=== PATIENT | male | born 1940 | race Caucasian/White ===

== ENCOUNTER 2016-11-30 06:10 | Day surgery (SDC) | payer OTHER ==
[~2016-11-30] VITALS: Ht 177.8 cm; Wt 86.2 kg
[~2016-11-30 06:10] MED LIST: AMLO10TA4 PO; ASPEC81 PO; ATOR-54 PO; CEFAZOLIN 1000MG/55 ML D5W IV SCH; CEFAZOLIN IV 1,000 MG in DEXTROSE 5% 50ML IV SCH; CITA40TA4 PO; CMD5 PO; CRG125 PO; DIGO0.2518 PO; GLC/500 PO; GLC5 PO; HYDC25 PO; LACTATED RINGER'S 1000ML IV SCH; LOSA1TAB38 PO; WARF5TAB90 PO
[2016-11-30 07:04] VITALS: BP 166/76; PULSE 92; TEMP 36.5; O2SAT 94; Ht 177.8 cm; Wt 86.2 kg
[2016-11-30] MEDS ORDERED: FENTANYL CITRATE INJ 50 MCG/1 ML 2 ML VIAL ONE (07:19)
[2016-11-30] MEDS ORDERED: BACITRACIN 50000 UNIT VIAL ONE (07:20)
[2016-11-30] MEDS ORDERED: MIDAZOLAM HCL 5 MG/ML 1 ML VIAL ONE (07:20)
[2016-11-30] MEDS ORDERED: LIDOCAINE HCL 1% 20 ML VIAL ONE (07:20)
--- NOTE | 2016-11-30 08:10 | History & Physical Bridge Note ---
H&P Re-Evaluation Bridge Note: I have examined the patient, reviewed the History & Physical and in the interval since the performance of the History & Physical I have noted the following changes of clinical significance: No changes noted
--- NOTE | 2016-11-30 08:11 | Procedure Note ---
Pre-Mod Sedation Assessment General Date of Moderate Sedation: Nov 30, 2016. Vital Signs: Vital Signs Past 12 Hours Date Time Temp Pulse Resp B/P (MAP) Pulse Ox O2 Delivery O2 Flow Rate FiO2 11/30/16 07:04 36.5 92 20 166/76 (106) 94 Room Air Review Cardiovascular: regular rate, rhythm Abdomen: soft Lungs: lungs clear Airway Class: II Pre-Sedation Airway Assessment Oral Cavity: WNL Short Thick Neck: No Hx of Sleep Apnea: No Smoking Status: Current Every Day Smoker Mallampati Classification: Class II ASA Classification: Class II Procedure Planning Contraindications-for Mod Sed: None Yes Notes The planned sedation has been discussed with the patient and consent obtained. I have identified the patient, determined the appropriateness of sedation and have assessed the patient immediately prior to the procedure. All medicine(s) and interventions are by my order.
--- NOTE | 2016-11-30 09:21 | Procedure Note ---
Post-Mod Sedation Assessment General Date of Moderate Sedation Nov 30, 2016. OF NOTE PATIENT DID NOT GET ANY MODERATE SEDATION FOR PROCEDURE; ONLY LOCAL LIDOCAINE GIVEN Vital Signs: Vital Signs Past 12 Hours Date Time Temp Pulse Resp B/P (MAP) Pulse Ox O2 Delivery O2 Flow Rate FiO2 11/30/16 09:15 90 16 119/86 (97) 95 Room Air 11/30/16 07:04 36.5 92 20 166/76 (106) 94 Room Air Review - Discharge Criteria Vital Signs Stable: Yes Alert/Oriented/Conversant: Yes Returned to Baseline Mental St: Yes Nausea Absent/Minimal: Yes Pain/Discomfort/Absent/Minimal: Yes Normal/Baseline Respirations: Yes Active Bleeding?: No Pt Received D/C Instructions: N/A Prescriptions Given: None Specific Proced. D/C Criteria Distal Pulses Present (Cardiac: N/A Groin site assessed-Card Cath: N/A Voided Prior To Discharge: N/A Discharged Patients Adult Escort/Transportation: N/A
--- NOTE | 2016-11-30 09:23 | [facility] Post Operative Brief Note ---
Immediate Operative Summary Operative Date Nov 30, 2016. Pre-Operative Diagnosis TBS, PERMANENT AF, PPM AT [facility] Post-Operative Diagnosis SAME Procedure(s) Performed SINGLE CHAMBER RATE RESPONSIVE PERMANENT PACEMAKER GENERATOR CHANGE WITH CAPPING OF THE RA LEAD Surgeon TAMARA FERRARA Electric Train Driver Surgeon(s) NONE Estimated Blood Loss <5CC Findings SEE OFFICIAL REPORT Fluids (cc crystalloids) 100CC Specimens NONE Drains NONE Anesthesia LOCAL LIDOCAINE AND BUBIVICAINE ONLY 40CC TOTAL Complication(s) None Disposition MTU
--- NOTE | 2016-11-30 09:25 | Discharge Instructions ---
Discharge Instructions Date of Service Nov 30, 2016. Visit Reason for Visit: Sinus Node Dysfunction Discharge Discharge Diagnosis / Problem: PPM AT [facility], TBS, PERMAMENT AF Discharge Goals Goal(s): Improve function Activity Recommendations Activity Limitations: as noted below Lifting Limitations: no more than 10 pounds (WITH THE LEFT ARM FOR 2 WEEKS) May Resume Sexual Activity: after one week Shower/Bathe: tomorrow Driving or Machine Use: no limitations Anesthesia . Post Anesthesia Instructions: If you have had General Anesthesia or IV Sedation: * Do not drive today. * Resume driving when surgeon permits. * Do not make important decisions or sign legal documents today. * Call surgeon for: 1. Temperature elevations greater than 101 degrees F. 2. Uncontrollable pain. 3. Excessive bleeding. 4. Persistent nausea and vomiting. 5. Medication intolerance (nausea, vomiting or rash). * For nausea and vomiting use only clear liquids such as: tea, soda, bouillon until nausea subsides, then gradually increase diet as tolerated. * If you have any concerns or questions, call your surgeon's office. If physician is unavailable and it is an emergency, call 911 or go to the nearest emergency room. . Diet Recommendations Recommended Home Diet: resume previous diet Procedures Procedures Performed: SINGLE CHAMBER RATE RESPONSIVE PERMANENT PACEMAKER GENERATOR CHANGE WITH CAPPING OF THE RA LEAD Pending Studies Studies pending at discharge: no Medical Emergencies . Who to Call and When: Medical Emergencies: If at any time you feel your situation is an emergency, please call 911 immediately. . Non-Emergent Contact Non-Emergency issues call your: [facility] . . "Provider Documentation" section prepared by Cynthia Toscano. .
[2016-11-30 09:30] VITALS: BP 120/76; PULSE 93; TEMP 37.2; O2SAT 91
[2016-11-30 10:00] VITALS: BP 96/66; PULSE 90; TEMP 36.8; O2SAT 92
--- NOTE | 2016-11-30 10:46 | OPERATIVE REPORT ---
DATE OF OPERATION: 11/30/2016 PREOPERATIVE DIAGNOSES: Dual chamber permanent pacemaker at elective replacement indicator, permanent atrial fibrillation on Coumadin, Coreg and digoxin, tachybrady syndrome. POSTOPERATIVE DIAGNOSIS: Same. PROCEDURE: Single chamber rate responsive permanent pacemaker generator change, capping of the right atrial pacing lead due to permanent Afib. SURGEON: Cynthia Toscano M.D. FENCE ERECTOR SUPERVISOR: None. ANESTHESIA: Local anesthesia given. No moderate conscious sedation as patient was driving. The patient received 40 mL of 1% lidocaine, bupivacaine mixture. INTRAVENOUS FLUIDS: 100 mL. ANTIBIOTICS: Ancef 2 grams. BLOOD LOSS: Less than 5 mL. COMPLICATIONS: None. CONDITION: Stable. URINE OUTPUT: Not applicable. SPECIMENS: None. FINDINGS: See below. URINE OUTPUT: Not applicable. INDICATIONS: This 76-year-old gentleman with a past medical history of tachybrady syndrome in which he underwent a dual chamber permanent pacemaker back in 2004, permanent atrial fibrillation on Coumadin, Coreg and digoxin, hypertension, hyperlipidemia, mild mitral regurgitation and tricuspid regurgitation, chronic kidney disease stage III, coronary artery stenosis status post carotid endarterectomy in the past, diabetes. On his most recent generator check he was found to hit KARLI and was recommended a generator change due to permanent Afib capping his right atrial lead. CONSENT: Consent was obtained prior to the patient going into the electrophysiology lab. The patient was informed of risks, benefits and alternatives to the procedure. Risks include but not limited to sudden cardiac , cardiac arrhythmias, cerebrovascular accident, myocardial infarction, bleeding and infection. The patient understood these risks and agreed to undergo the procedure as planned. Informed consent was obtained. DESCRIPTION OF THE PROCEDURE: The patient was brought into the electrophysiology lab in a fasting state. He was connected to continuous quality assurance monitor. A timeout was performed to ensure patient's identity and procedure correctly. The patient was prepped and draped over the left infraclavicular space in normal surgical standard fashion. He received prophylactic antibiotics prior to incision. Local anesthesia was given throughout the procedure for patient's comfort level. There was no moderate conscious sedation given as the patient had to drive himself home. [place] precautions were maintained throughout the procedure. A 20 mL of 1% lidocaine, bupivacaine mixture were given over the pulse generator. Incision was made over the pulse generator. Blunt dissection was performed down to the prior pulse generator. The capsule was disrupted using iris scissors and the pulse generator was freed from the capsule. The right ventricular lead was tested intraoperatively, see below for results. The right atrial lead was capped due to permanent atrial fibrillation. A 10 mL of 1% lidocaine, bupivacaine mixture were given in the capsule and then using blunt dissection, the capsule was disrupted inferiorly and caudally to allow for new blood flow. The pocket was flushed with copious amounts of bacitracin saline wash and inspected for hemostasis. The new pulse generator was attached to the leads making sure that the pins were in appropriate position, passed the set screws and the set screws were all tightened. The new pulse generator was placed in the pocket, making sure that the lead was lying flat beneath the device and included the right atrial lead was lying flat beneath the device. An additional 10 mL of 1% lidocaine, bupivacaine mixture were given under the skin prior to closing. Indigo stat was given also since the patient is on Coumadin. The incision was closed in a 3-layer fashion using a 2-0 Vicryl interrupted suture followed by a 3-0 Vicryl interrupted suture followed by a 4-0 Monocryl running stitch. Dermabond was applied. EQUIPMENT: 1. Explanted generator is a [employer] model #1297, serial #[id number] implanted 05/21/2004. 2. New pulse generator was a [employer] Sensia SESR01, serial #[id number]. 3. Right atrial lead that is capped was a [employer]/Guidant 4063, serial #[id number] implanted 05/21/2004. 4. Right ventricular lead is [employer], model #4285, serial #[id number] implanted 05/21/2004. INTRAOPERATIVE TESTING: R-waves 21.8 millivolts, impedance 745 ohms, threshold 1.5 volts at 2.4 milliamps. FINAL MEASUREMENTS THROUGH THE DEVICE: Right R-wave 11.2 millivolts, impedance 779 ohms, threshold 1.25 volts at 0.4 milliseconds. FINAL PARAMETERS: VVIR 60/130. Right ventricular amplitude 3 volts, pulse width 0.4 milliseconds, sensitivity 2.8 millivolts. IMPRESSION: Successful single chamber rate responsive implantable permanent pacemaker generator change with capping of the right atrial lead due to tachybrady syndrome, pacemaker at [facility], permanent atrial fibrillation. PLAN: Monitor patient after the procedure, let him eat a little something then he can drive himself home since he did not get any conscious sedation. He is not allowed to lift more than 10 pounds with the left arm for 2 weeks. He should continue his home medications and follow up in our [facility] office for device and wound check in 7-10 days. I attest to the content of the Intraoperative Record and any orders documented therein. Any exceptions are noted below. AUTUMN
== END 2016-11-30 10:16 | disposition home or self-care (01) ==
LOC: C.ACU 06:10
PROVIDERS: ATTEND Internal Medicine
DX: I48.2 Chronic atrial fibrillation (principal); I49.5 Sick sinus syndrome; E11.9 Type 2 diabetes mellitus without complications; E78.5 Hyperlipidemia, unspecified; N18.3 Chronic kidney disease, stage 3 (moderate); I12.9 Hypertensive chronic kidney disease with stage 1 through stage 4 chronic kidney disease, or unspecified chronic kidney disease; F41.8 Other specified anxiety disorders; I65.23 Occlusion and stenosis of bilateral carotid arteries; Z95.0 Presence of cardiac pacemaker; Z79.01 Long term (current) use of anticoagulants; Z85.51 Personal history of malignant neoplasm of bladder; Z85.828 Personal history of other malignant neoplasm of skin; Z79.899 Other long term (current) drug therapy

== ENCOUNTER 2017-07-04 15:46 | Inpatient (IN) | payer OTHER ==
[~2017-07-04] VITALS: Ht 177.8 cm; Wt 83.7 kg
[~2017-07-04 15:46] MED LIST changes: -CEFAZOLIN 1000MG/55 ML D5W IV SCH; -CEFAZOLIN IV 1,000 MG in DEXTROSE 5% 50ML IV SCH; -LACTATED RINGER'S 1000ML IV SCH
[2017-07-04] MEDS ORDERED: SODIUM CHLORIDE 0.9% 250ML 250 ML IV STA (16:10)
[2017-07-04] MEDS ORDERED: METHYLPREDNISOLONE 125 MG VIAL IV STA (16:10)
[2017-07-04] MEDS ORDERED: ALBUT/IPRATROP 3MG/0.5MG NEB 3 ML VIAL INH ONE (16:15)
[2017-07-04] MEDS ORDERED: SODIUM CHLORIDE 0.65% NA SOLN 45 ML (OCEAN) ONE (16:15)
--- NOTE | 2017-07-04 16:26 | EMERGENCY ROOM VISIT NOTE ---
History Report prepared by Sylvia: Sherri Verde Under the Supervision of: Dr. Tevin Ricketts M.D. First contact with patient: 16:03 Chief Complaint: COUGH Stated Complaint: SOB History of Present Illness The patient is a 77 year old male who presents to the Emergency Room with complaints of persistent shortness that began one day ago. The patient states that he has been experiencing generalized weakness, a runny nose, a cough with clear sputum, and congestion. He denies any chills, fevers, nausea, vomiting, diarrhea, pain with urination, or changes in his vision or hearing. The patient reports that he is not normally on oxygen and does not have any inhalers at home. He notes that he smokes one pack of cigarettes a day, but he has not had any respiratory problems in the past. The patient states that he has a pacemaker in place for his atrial fibrillation, noting that he is on Coumadin and that Dr. Pruitt is his umbrella tipper. He notes that the nebulizer treatment he received prior to arrival helped relieve some of his symptoms. Source of History: patient Onset: one day ago Position: other (respiratory system) Quality: other (shortness of breath) Timing: other (persistent) Associated Symptoms: + cough (with clear sputum), + weakness (generalized), No fevers, No chills, No nausea, No vomiting, No diarrhea Note: Associated symptoms include: congestion and runny nose. Patient denies: pain with urination and changes in his vision or hearing. Review of Systems See HPI for pertinent positives and negatives. A total of ten systems were reviewed and were otherwise negative. Past Medical & Surgical Medical Problems: (1) A-fib (2) COPD exacerbation (3) Diabetes (4) Heart disease (5) HTN (hypertension) Family History Diabetes mellitus FH: heart disease Social History Smoking Status: Current Every Day Smoker Alcohol Use: none Drug Use: none Housing Status: lives alone Occupation Status: unemployed Current/Historical Medications Scheduled Amlodipine (Norvasc), 10 MG PO DAILY Aspirin (Aspirin Ec), 81 MG PO DAILY Atorvastatin (Lipitor), 20 MG PO DAILY Carvedilol (Coreg), 12.5 MG PO BID Citalopram (Citalopram Hydrobromide), 40 MG PO DAILY Digoxin (Digoxin), 0.125 MG PO DAILY Glipizide (Glucotrol), 20 MG PO BID Hydrochlorothiazide (Hctz), 25 MG PO 3XWK Losartan Potassium (Losartan Potassium), 25 MG PO DAILY Metformin Hcl (Glucophage), 500 MG PO BID Warfarin Sod (Coumadin), 5 MG PO SatSun Warfarin Sod (Jantoven), 2.5 MG PO MTWRF Allergies Coded Allergies: No Known Allergies (Verified , 07/04/17) Physical Exam Vital Signs Date Time Temp Pulse Resp B/P (MAP) Pulse Ox O2 Delivery O2 Flow Rate FiO2 07/04/17 19:43 92 Oxymask 6.0 07/04/17 19:24 102 22 122/77 90 Nasal Cannula 3.0 07/04/17 17:20 88 22 125/73 98 Nebulizer 7.0 07/04/17 16:38 86 07/04/17 16:33 87 20 93 Nasal Cannula 4.0 07/04/17 16:04 36.5 94 20 126/67 94 Nasal Cannula 4.0 07/04/17 16:03 93 Nasal Cannula 4.0 07/04/17 16:00 75 Room Air Physical Exam GENERAL: Awake, alert, dyspneic appearing, in no distress HENT: Dry mucous membranes. Normocephalic, atraumatic. Oropharynx unremarkable. EYES: Normal conjunctiva. Sclera non-icteric. NECK: Supple. No nuchal rigidity. FROM. No JVD. RESPIRATORY: Diminished breath sounds throughout with scant scattered wheezes. CARDIAC: Regular rate, normal rhythm. Extremities warm and well perfused. Pulses equal. ABDOMEN: Soft, non-distended. No tenderness to palpation. No rebound or guarding. No masses. RECTAL: Deferred. MUSCULOSKELETAL: Chest examination reveals no tenderness. The back is symmetrical on inspection without obvious abnormality. There is no CVA tenderness to palpation. No joint edema. LOWER EXTREMITIES: Calves are equal size bilaterally and non-tender. No edema. No discoloration. NEURO: Normal sensorium. No sensory or motor deficits noted. SKIN: No rash or jaundice noted. Medical Decision & Procedures ER Provider Diagnostic Interpretation: X-ray: Per my interpretation, radiologist review. CHEST ONE VIEW PORTABLE HISTORY: Atypical CHEST PAIN COMPARISON: Chest 11/15/2014. FINDINGS: No pneumothorax. The heart is mildly enlarged. Interstitial and vascular thickening is progressed. Hazy appearance to the lung bases may be due to small layering pleural effusions. Left-sided dual-chamber pacemaker. Severe degenerative changes within the right glenohumeral joint. IMPRESSION: Interval development of pulmonary edema with probable small bilateral pleural effusions. Electronically signed by: Corby Everett M.D. 07/04/2017 4:57 PM Dictated Date/Time: 07/04/2017 4:56 PM Laboratory Results 07/04/17 16:39 Red Blood Count 4.22, Mean Corpuscular Volume 92.4, Mean Corpuscular Hemoglobin 31.3, Mean Corpuscular Hemoglobin Concent 33.8, Mean Platelet Volume 9.8, Neutrophils (%) (Auto) 77.0, Lymphocytes (%) (Auto) 15.6, Monocytes (%) (Auto) 7.0, Eosinophils (%) (Auto) 0.0, Basophils (%) (Auto) 0.1, Neutrophils # (Auto) 5.64, Lymphocytes # (Auto) 1.14, Monocytes # (Auto) 0.51, Eosinophils # (Auto) 0.00, Basophils # (Auto) 0.01 07/04/17 16:39 Test 07/04/17 16:33 07/04/17 16:39 Influenza Type A (RT-PCR) Neg for Influ A (NEG) Influenza Type A Antigen Neg for Influ A (NEG) Influenza Type B Antigen Neg for Influ B (NEG) Influenza Type B (RT-PCR) Neg for Influ B (NEG) White Blood Count 7.32 K/uL (4.8-10.8) Red Blood Count 4.22 M/uL (4.7-6.1) Hemoglobin 13.2 g/dL (14.0-18.0) Hematocrit 39.0 % (42-52) Mean Corpuscular Volume 92.4 fL (80-100) Mean Corpuscular Hemoglobin 31.3 pg (25-34) Mean Corpuscular Hemoglobin Concent 33.8 g/dl (32-36) Platelet Count 145 K/uL (130-400) Mean Platelet Volume 9.8 fL (7.4-10.4) Neutrophils (%) (Auto) 77.0 % Lymphocytes (%) (Auto) 15.6 % Monocytes (%) (Auto) 7.0 % Eosinophils (%) (Auto) 0.0 % Basophils (%) (Auto) 0.1 % Neutrophils # (Auto) 5.64 K/uL (1.4-6.5) Lymphocytes # (Auto) 1.14 K/uL (1.2-3.4) Monocytes # (Auto) 0.51 K/uL (0.11-0.59) Eosinophils # (Auto) 0.00 K/uL (0-0.5) Basophils # (Auto) 0.01 K/uL (0-0.2) RDW Standard Deviation 48.5 fL (36.4-46.3) RDW Coefficient of Variation 14.4 % (11.5-14.5) Immature Granulocyte % (Auto) 0.3 % Immature Granulocyte # (Auto) 0.02 K/uL (0.00-0.02) Prothrombin Time 29.4 SECONDS (9.0-12.0) Prothromb Time International Ratio 2.9 (0.9-1.1) Venous Blood pH 7.38 (7.36-7.41) Venous Blood Partial Pressure CO2 52 mmHg (38.0-50.0) Venous Blood Partial Pressure O2 28 mmHg Venous Blood HCO3 30 mmol/L Venous Blood Oxygen Saturation < 60.0 % Venous Blood Base Excess 3.7 mEq/L Anion Gap 6.0 mmol/L (3-11) Est Creatinine Clear Calc Drug Dose 76.6 ml/min Estimated GFR () 98.3 Estimated GFR (Non- 84.8 BUN/Creatinine Ratio 25.4 (10-20) Calcium Level 8.4 mg/dl (8.5-10.1) Total Bilirubin 1.2 mg/dl (0.2-1) Direct Bilirubin 0.3 mg/dl (0-0.2) Aspartate Amino Transf (AST/SGOT) 37 U/L (15-37) Alanine Aminotransferase (ALT/SGPT) 33 U/L (12-78) Alkaline Phosphatase 94 U/L (45-117) Pro-B-Type Natriuretic Peptide 2522 pg/ml (0-900) Total Protein 7.5 gm/dl (6.4-8.2) Albumin 3.0 gm/dl (3.4-5.0) Lipase 51 U/L (73-393) Digoxin Level 0.4 ng/ml (0.8-2.0) Laboratory results reviewed by me Medications Administered Medications (Trade) Dose Ordered Sig/Lynette Route Start Time Stop Time Status Last Admin Dose Admin Albuterol/ Ipratropium (Duoneb) 12 ml ONE ONCE INH 07/04/17 16:15 07/04/17 16:16 DC 07/04/17 16:32 12 ML Sodium Chloride 250 ml @ 999 mls/hr Q16M STAT IV 07/04/17 16:10 07/04/17 16:25 DC 07/04/17 16:37 999 MLS/HR Methylprednisolone Sodium Succinate (Solu-Medrol IV) 125 mg NOW STAT IV 07/04/17 16:10 07/04/17 16:14 DC 07/04/17 16:37 125 MG Sodium Chloride ([place] Nasal [place]) 2 sprays NOW ONCE NA 07/04/17 16:15 07/04/17 16:16 DC 07/04/17 16:37 2 SPRAYS Aspirin (Aspirin Chew) 162 mg NOW STAT PO 07/04/17 18:12 07/04/17 18:14 DC 07/04/17 18:39 162 MG Azithromycin (Zithromax Tab) 500 mg NOW ONCE PO 07/04/17 18:15 07/04/17 18:16 DC 07/04/17 18:40 500 MG ECG Per My Interpretation Indication: SOB/dyspnea Rate (beats per minute): 83 Rhythm: atrial fibrillation Findings: nonspecific-ST abn (laterally, similar to prior), no acute ischemic change, other (normal axis) Comparison ECG Date: Non-specific ST changes laterally similar to prior: ED Course 1604: The patient was evaluated in room B8. A complete history and physical exam was performed. 180: I reevaluated the patient, who was resting. I discussed some test findings with him and he verbalized complete understanding. 1852: Discussed the patient's case with Luis Alcaraz. He will evaluate the patient for further treatment. 2019: I reevaluated the patient and updated him on test findings. He verbalized agreement of the treatment plan. Medical Decision I reviewed the patient's past medical history, medications, and the nursing notes as described above. Differential diagnosis: Etiologies such as infections, reactive airway disease, pneumonia, pneumothorax , COPD, CHF, cardiac ischemia, pulmonary embolism, musculoskeletal, gastrointestinal, as well as others were entertained. The patient is a 77-year-old gentleman with a past medical history of sinus node dysfunction status post permanent pacemaker, A. fib on Coumadin, diabetes, CKD presents emergency department with cough congestion for the past 2 days found to be hypoxic at 88% on room air per EMS per hpi. On arrival the patient is dyspneic but no acute distress, afebrile, with O2 saturation 78% on room air , vital signs otherwise stable. On exam the patient has diminished breath sounds throughout with scant scattered wheezes. Patient appears clinically dry. EKG with minor lateral STD laterally similar in precordial morphology to prior EKG in 2014. Initial trop 1.2 in the setting of patient's hypercapnea and hypoxia, likely ongoing for past couple of days. Will continue to trend Trop for now. INR 2.9. CO2 50s. WBC wnl. CXR with pulmonary edema however BNP 2500s. Given patient appears dry to Euvolemic Lasix deferred at this time. Patient feeling improved with steroids and duoneb. Azithro given 2/2 sputum production. Will admit for COPD exacerbation with CHF component. Case d/w Luis Ordoñez hospitalist who will admit the patient for further management. Medication Reconcilliation Current Medication List: was personally reviewed by me Blood Pressure Screening Patient's blood pressure: Normal blood pressure Blood pressure disposition: Did not require urgent referral Consults Time Called: 1852 Consulting Physician: Luis Alcaraz Returned Call: 1852 Discussed the patient's case with Luis Ordoñez. He will evaluate the patient for further treatment. Impression Primary Impression: COPD exacerbation Additional Impression: Pulmonary edema Scribe Attestation The scribe's documentation has been prepared under my direction and personally reviewed by me in its entirety. I confirm that the note above accurately reflects all work, treatment, procedures, and medical decision making performed by me. Departure Information Dispostion Being Evaluated By Hospitalist Referrals David Charles M.D. (PCP) Forms HOME CARE DOCUMENTATION FORM, IMPORTANT VISIT INFORMATION Patient Instructions My [facility] Health Problem Qualifiers
[2017-07-04 16:33] VITALS: PULSE 87; O2SAT 93
[2017-07-04 16:49] LABS: BASO % 0.1 %; BASO ABS # 0.01 K/uL (0-0.2); HEMOGLOBIN 13.2 g/dL (14.0-18.0); IG# 0.02 K/uL (0.00-0.02); LYMPH % 15.6 %; LYMPH ABS # 1.14 K/uL (1.2-3.4); MEAN CELL VOLUME 92.4 fL (80-100); MEAN CORPUSCULAR HEMOGLOBIN 31.3 pg (25-34); MEAN CORPUSCULAR HGB CONC 33.8 g/dl (32-36); MEAN PLATELET VOLUME 9.8 fL (7.4-10.4); MONO ABS # 0.51 K/uL (0.11-0.59); NEUT ABS # 5.64 K/uL (1.4-6.5); PLATELET COUNT 145 K/uL (130-400); RED CELL DISTRIBUTION WIDTH CV 14.4 % (11.5-14.5); RED CELL DISTRIBUTION WIDTH SD 48.5 fL (36.4-46.3); WHITE BLOOD COUNT 7.32 K/uL (4.8-10.8)
[2017-07-04 16:57] LABS: INR 2.9 (0.9-1.1)
--- NOTE | 2017-07-04 16:58 | DIAGNOSTIC IMAGING REPORT ---
CHEST ONE VIEW PORTABLE HISTORY: Atypical CHEST PAIN COMPARISON: Chest 11/15/2014. FINDINGS: No pneumothorax. The heart is mildly enlarged. Interstitial and vascular thickening is progressed. Hazy appearance to the lung bases may be due to small layering pleural effusions. Left-sided dual-chamber pacemaker. Severe degenerative changes within the right glenohumeral joint. IMPRESSION: Interval development of pulmonary edema with probable small bilateral pleural effusions. Electronically signed by: Corby Everett M.D. 07/04/2017 4:57 PM Dictated Date/Time: 07/04/2017 4:56 PM
[2017-07-04] MEDS ORDERED: HYDR25TA4 PO (17:11)
[2017-07-04] MEDS ORDERED: AMLO-114 PO (17:11)
[2017-07-04] MEDS ORDERED: CZR50 PO (17:11)
[2017-07-04] MEDS ORDERED: CLX/40 PO (17:11)
[2017-07-04] MEDS ORDERED: ASPI81TA28 PO (17:11)
[2017-07-04] MEDS ORDERED: GLIP10TA3 PO (17:11)
[2017-07-04] MEDS ORDERED: WARF5TAB7 PO (17:11)
[2017-07-04] MEDS ORDERED: CARV12.52 PO (17:11)
[2017-07-04] MEDS ORDERED: LNX125 PO (17:11)
[2017-07-04] MEDS ORDERED: CMD5 PO (17:11)
[2017-07-04] MEDS ORDERED: ATOR-22 PO (17:11)
[2017-07-04] MEDS ORDERED: GLC/500 PO (17:11)
[2017-07-04 17:23] LABS: INFLUENZA B ANTIGEN Neg for Influ B (NEG)
[2017-07-04 17:34] LABS: CALCIUM 8.4 mg/dl (8.5-10.1); CREATININE 0.86 mg/dl (0.60-1.40); POTASSIUM 3.9 mmol/L (3.5-5.1)
[2017-07-04 17:45] LABS: TOTAL PROTEIN 7.5 gm/dl (6.4-8.2)
[2017-07-04] MEDS ORDERED: ASPIRIN 81 MG CHEW PO STA (18:12)
[2017-07-04] MEDS ORDERED: AZITHROMYCIN 250 MG TAB PO ONE (18:15)
[2017-07-04] MEDS ORDERED: POLYETHYLENE (MIRALAX) 17 GM PACK PO PRN (20:45)
[2017-07-04] MEDS ORDERED: ONDANSETRON INJ 2 MG/ML 2 ML VIAL IV PRN (20:45)
[2017-07-04] MEDS ORDERED: DEXTROSE 50% 50 ML SYR IV PRN (20:45)
[2017-07-04] MEDS ORDERED: GLUCOSE 10 TABS/TUBE PO PRN (20:45)
[2017-07-04] MEDS ORDERED: ACETAMINOPHEN 325 MG TAB PO PRN (20:45)
[2017-07-04] MEDS ORDERED: GLUCAGON FOR INJ 1 MG VIAL SQ PRN (20:45)
[2017-07-04] MEDS ORDERED: GLUCOSE 40% GEL 15 GM TUBE PO PRN (20:45)
--- NOTE | 2017-07-04 21:29 | History and Physical ---
History & Physical Date & Time of Service: Jul 04, 2017 at 21:16 Chief Complaint: SOB Primary Care Physician: Shwetha Avina History of Present Illness Source: patient, clinic records, hospital records The patient is a 77-year-old male smoker who presents to the emergency room with shortness of breath that began 24 hours before arrival. He reports generalized weakness, runny nose, a cough with clear sputum which is new for him. He denies any fevers, chills, nausea, vomiting, diarrhea, pain with urination or other UTI symptoms. He denies chest pain or palpitations. He has a known history of A. fib on Coumadin and is therapeutic. He received a nebulizer treatment prior to arrival and in the ER with some improvement. He denies any recent sick contacts except for 2 people that he briefly interacted with in his apartment building. He denies any travel. He is not on oxygen typically. He reports feeling last night that he could not get enough air. The patient lives alone. Past Medical/Surgical History Medical Problems: (1) A-fib Status: Chronic (2) Bilateral carotid artery stenosis Status: Chronic (3) Diabetes Status: Chronic (4) Heart disease Status: Chronic (5) HTN (hypertension) Status: Chronic (6) Pacemaker Status: Chronic Family History Diabetes mellitus FH: heart disease Social History Smoking Status: Current Every Day Smoker (1 pack per day) Smokeless Tobacco Use: No Alcohol Use: none Drug Use: none Marital Status: single Housing status: lives alone Occupational Status: unemployed Immunizations History of Influenza Vaccine: Yes Influenza Vaccine Date: May 01, 2009 History of Tetanus Vaccine?: No History of Pneumococcal: No History of Hepatitis B Vaccine: No Allergies Coded Allergies: No Known Allergies (Verified , 07/04/17) Home Medications Scheduled Amlodipine (Norvasc), 10 MG PO DAILY Aspirin (Aspirin Ec), 81 MG PO DAILY Atorvastatin (Lipitor), 20 MG PO DAILY Carvedilol (Coreg), 12.5 MG PO BID Citalopram (Citalopram Hydrobromide), 40 MG PO DAILY Digoxin (Digoxin), 0.125 MG PO DAILY Glipizide (Glucotrol), 20 MG PO BID Hydrochlorothiazide (Hctz), 25 MG PO [id number] Losartan Potassium (Losartan Potassium), 25 MG PO DAILY Metformin Hcl (Glucophage), 500 MG PO BID Warfarin Sod (Coumadin), 5 MG PO SatSun Warfarin Sod (Jantoven), 2.5 MG PO [id number] Review of Systems At least 10 systems were reviewed and negative except as indicated in HPI. Physical Exam Vital Signs Date Time Temp Pulse Resp B/P (MAP) Pulse Ox O2 Delivery O2 Flow Rate FiO2 07/04/17 21:02 102 22 122/77 92 07/04/17 19:43 92 Oxymask 6.0 07/04/17 19:24 102 22 122/77 90 Nasal Cannula 3.0 07/04/17 17:20 88 22 125/73 98 Nebulizer 7.0 07/04/17 16:38 86 07/04/17 16:33 87 20 93 Nasal Cannula 4.0 07/04/17 16:04 36.5 94 20 126/67 94 Nasal Cannula 4.0 07/04/17 16:03 93 Nasal Cannula 4.0 07/04/17 16:00 75 Room Air General Appearance: WD/WN, + mild distress (Mild respiratory distress.) Head: normocephalic, atraumatic Eyes: normal inspection, PERRL, sclerae normal ENT: normal ENT inspection, pharynx normal, + pertinent finding (Mucous membranes moist) Neck: supple, no adenopathy, no JVD, trachea midline Respiratory/Chest: + rhonchi, + wheezing, + pertinent finding (Mild respiratory distress, pacemaker in place left anterior chest) Cardiovascular: regular rate, rhythm, no edema, no gallop, no JVD, no murmur, normal peripheral pulses Abdomen/GI: normal bowel sounds, non tender, soft, no organomegaly Extremities/Musculoskelatal: normal inspection, no calf tenderness, no pedal edema, normal range of motion 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, no motor/sensory deficits, alert, normal mood/affect, oriented x 3 Skin: normal color, warm/dry, no rash Diagnostics Laboratory Results 07/04/17 16:39 Red Blood Count 4.22, Mean Corpuscular Volume 92.4, Mean Corpuscular Hemoglobin 31.3, Mean Corpuscular Hemoglobin Concent 33.8, Mean Platelet Volume 9.8, Neutrophils (%) (Auto) 77.0, Lymphocytes (%) (Auto) 15.6, Monocytes (%) (Auto) 7.0, Eosinophils (%) (Auto) 0.0, Basophils (%) (Auto) 0.1, Neutrophils # (Auto) 5.64, Lymphocytes # (Auto) 1.14, Monocytes # (Auto) 0.51, Eosinophils # (Auto) 0.00, Basophils # (Auto) 0.01 07/04/17 16:39 Test 07/04/17 16:33 07/04/17 16:39 Influenza Type A Antigen Neg for Influ A (NEG) Influenza Type B Antigen Neg for Influ B (NEG) White Blood Count 7.32 K/uL (4.8-10.8) Red Blood Count 4.22 M/uL (4.7-6.1) Hemoglobin 13.2 g/dL (14.0-18.0) Hematocrit 39.0 % (42-52) Mean Corpuscular Volume 92.4 fL (80-100) Mean Corpuscular Hemoglobin 31.3 pg (25-34) Mean Corpuscular Hemoglobin Concent 33.8 g/dl (32-36) Platelet Count 145 K/uL (130-400) Mean Platelet Volume 9.8 fL (7.4-10.4) Neutrophils (%) (Auto) 77.0 % Lymphocytes (%) (Auto) 15.6 % Monocytes (%) (Auto) 7.0 % Eosinophils (%) (Auto) 0.0 % Basophils (%) (Auto) 0.1 % Neutrophils # (Auto) 5.64 K/uL (1.4-6.5) Lymphocytes # (Auto) 1.14 K/uL (1.2-3.4) Monocytes # (Auto) 0.51 K/uL (0.11-0.59) Eosinophils # (Auto) 0.00 K/uL (0-0.5) Basophils # (Auto) 0.01 K/uL (0-0.2) RDW Standard Deviation 48.5 fL (36.4-46.3) RDW Coefficient of Variation 14.4 % (11.5-14.5) Immature Granulocyte % (Auto) 0.3 % Immature Granulocyte # (Auto) 0.02 K/uL (0.00-0.02) Prothrombin Time 29.4 SECONDS (9.0-12.0) Prothromb Time International Ratio 2.9 (0.9-1.1) Venous Blood pH 7.38 (7.36-7.41) Venous Blood Partial Pressure CO2 52 mmHg (38.0-50.0) Venous Blood Partial Pressure O2 28 mmHg Venous Blood HCO3 30 mmol/L Venous Blood Oxygen Saturation < 60.0 % Venous Blood Base Excess 3.7 mEq/L Anion Gap 6.0 mmol/L (3-11) Est Creatinine Clear Calc Drug Dose 76.6 ml/min Estimated GFR () 98.3 Estimated GFR (Non- 84.8 BUN/Creatinine Ratio 25.4 (10-20) Calcium Level 8.4 mg/dl (8.5-10.1) Total Bilirubin 1.2 mg/dl (0.2-1) Direct Bilirubin 0.3 mg/dl (0-0.2) Aspartate Amino Transf (AST/SGOT) 37 U/L (15-37) Alanine Aminotransferase (ALT/SGPT) 33 U/L (12-78) Alkaline Phosphatase 94 U/L (45-117) Troponin I 1.230 ng/ml (0-0.045) Pro-B-Type Natriuretic Peptide 2522 pg/ml (0-900) Total Protein 7.5 gm/dl (6.4-8.2) Albumin 3.0 gm/dl (3.4-5.0) Lipase 51 U/L (73-393) Digoxin Level 0.4 ng/ml (0.8-2.0) Results Past 24 Hours Test 07/04/17 16:33 07/04/17 16:39 Range/Units Influenza Type A Antigen Neg for Influ A NEG Influenza Type B Antigen Neg for Influ B NEG White Blood Count 7.32 4.8-10.8 K/uL Red Blood Count 4.22 4.7-6.1 M/uL Hemoglobin 13.2 14.0-18.0 g/dL Hematocrit 39.0 42-52 % Mean Corpuscular Volume 92.4 80-100 fL Mean Corpuscular Hemoglobin 31.3 25-34 pg Mean Corpuscular Hemoglobin Concent 33.8 32-36 g/dl Platelet Count 145 130-400 K/uL Mean Platelet Volume 9.8 7.4-10.4 fL Neutrophils (%) (Auto) 77.0 % Lymphocytes (%) (Auto) 15.6 % Monocytes (%) (Auto) 7.0 % Eosinophils (%) (Auto) 0.0 % Basophils (%) (Auto) 0.1 % Neutrophils # (Auto) 5.64 1.4-6.5 K/uL Lymphocytes # (Auto) 1.14 1.2-3.4 K/uL Monocytes # (Auto) 0.51 0.11-0.59 K/uL Eosinophils # (Auto) 0.00 0-0.5 K/uL Basophils # (Auto) 0.01 0-0.2 K/uL RDW Standard Deviation 48.5 36.4-46.3 fL RDW Coefficient of Variation 14.4 11.5-14.5 % Immature Granulocyte % (Auto) 0.3 % Immature Granulocyte # (Auto) 0.02 0.00-0.02 K/uL Prothrombin Time 29.4 9.0-12.0 SECONDS Prothromb Time International Ratio 2.9 0.9-1.1 Venous Blood pH 7.38 7.36-7.41 Venous Blood Partial Pressure CO2 52 38.0-50.0 mmHg Venous Blood Partial Pressure O2 28 mmHg Venous Blood HCO3 30 mmol/L Venous Blood Oxygen Saturation < 60.0 % Venous Blood Base Excess 3.7 mEq/L Sodium Level 134 136-145 mmol/L Potassium Level 3.9 3.5-5.1 mmol/L Chloride Level 100 98-107 mmol/L Carbon Dioxide Level 28 21-32 mmol/L Anion Gap 6.0 3-11 mmol/L Blood Urea Nitrogen 22 7-18 mg/dl Creatinine 0.86 0.60-1.40 mg/dl Est Creatinine Clear Calc Drug Dose 76.6 ml/min Estimated GFR () 98.3 Estimated GFR (Non- 84.8 BUN/Creatinine Ratio 25.4 10-20 Random Glucose 105 70-99 mg/dl Calcium Level 8.4 8.5-10.1 mg/dl Total Bilirubin 1.2 0.2-1 mg/dl Direct Bilirubin 0.3 0-0.2 mg/dl Aspartate Amino Transf (AST/SGOT) 37 15-37 U/L Alanine Aminotransferase (ALT/SGPT) 33 12-78 U/L Alkaline Phosphatase 94 45-117 U/L Troponin I 1.230 0-0.045 ng/ml Pro-B-Type Natriuretic Peptide 2522 0-900 pg/ml Total Protein 7.5 6.4-8.2 gm/dl Albumin 3.0 3.4-5.0 gm/dl Lipase 51 73-393 U/L Digoxin Level 0.4 0.8-2.0 ng/ml Diagnostic Radiology CHEST ONE VIEW PORTABLE HISTORY: Atypical CHEST PAIN COMPARISON: Chest 11/15/2014. FINDINGS: No pneumothorax. The heart is mildly enlarged. Interstitial and vascular thickening is progressed. Hazy appearance to the lung bases may be due to small layering pleural effusions. Left-sided dual-chamber pacemaker. Severe degenerative changes within the right glenohumeral joint. IMPRESSION: Interval development of pulmonary edema with probable small bilateral pleural effusions. EKG afib 83, no ST changes. poss q waves in V1-V3 Impression Assessment and Plan 77-year-old male smoker presents with persistent shortness of breath 1 day. 1. Hypoxia-possibly multifactorial etiology including COPD exacerbation with wheezing on exam as possible diastolic heart failure exacerbation. Wheezing, history of smoking and improvement on nebs therapy points more towards COPD exacerbation as the cause of his hypoxia. However the patient does have nonobstructive coronary disease and known aortic sclerosis on prior echo in 2009 in addition to pleural effusions and pulmonary congestion on chest x-ray tonight. He is Lasix neda and on HCTZ 3 times a week for diuretics. He has no edema or JVD. Will give Lasix 20 IV and monitor response in addition to continuing bronchodilator therapy, Solu-Medrol 40 mg IV every 6, Levaquin 750 IV daily. Continue supplemental oxygen. Flu PCR pending. 2. Elevated troponin-patient denies chest pain, however risk factors include diabetes hypertension older age, and active smoking. Patient has nonobstructive coronary disease per prior cardiology note last fall. Aspirin and statin continued. Patient is anticoagulated on warfarin. Echo ordered for morning. Monitor on telemetry. Cardiology consult. 3. Chronic atrial fibrillation-rate controlled with Coreg, on digoxin. Anticoagulated on Coumadin 4. Diabetes mellitus type 2-hold metformin and glipizide. Insulin sliding scale with carb coverage and Lantus while on steroids and hospitalized for close control. A1c in a.m. 5. Bilateral carotid artery stenosis 6. CKD stage III-at baseline 7. History of bladder cancer-no urinary issues at this time DVT prophylaxis-warfarin Full code as discussed with patient on admission Disposition-telemetry DO Luis Jacobo hospitalist Resuscitation Status VTE Prophylaxis Will order VTE Prophylaxis: Yes
[2017-07-04 21:37] VITALS: BP 142/87; PULSE 92; TEMP 36.7; O2SAT 93; Ht 177.8 cm; Wt 83.7 kg
[2017-07-04] MEDS ORDERED: FUROSEMIDE INJ 20 MG in SYRINGE 0 ML IV ONE (21:45)
[2017-07-04] MEDS: METHYLPREDNISOLONE IV 40 MG in SYRINGE 0 ML IV SCH (22:38)
[2017-07-04] MEDS: LEVOFLOXACIN / D5W 750 MG in PREMIXED IN D5W 150 ML IV SCH (22:38)
[2017-07-04 22:43] LABS: INFLUENZA A PCR Neg for Influ A (NEG); INFLUENZA B PCR Neg for Influ B (NEG)
[2017-07-04] MEDS: INSULIN ASPART 100 UNITS/ML 3 ML PEN SC SCH (22:52)
[2017-07-04] MEDS: INSULIN GLARGINE SOLOSTAR 100 UNITS/ML 3 ML PEN SC SCH (22:53)
[2017-07-04 23:41] VITALS: BP 93/65; PULSE 97; TEMP 36.8; O2SAT 96
[2017-07-05] VITALS (9 sets, daily range): BP systolic 107–160; BP diastolic 58–77; PULSE 74–88; TEMP 36.5–37.1; O2SAT 91–96
[2017-07-05] MEDS ORDERED: PNEUMOCOCCAL ADMINISTRATION CHARGE ONE (04:00)
[2017-07-05] MEDS ORDERED: PNEUMOCOCCAL POLYSACCHARIDES 25 MCG/0.5 ML VIAL/SYR IM. ONE (04:00)
[2017-07-05 04:23] LABS: HEMATOCRIT 42.4 % (42-52); HEMOGLOBIN 14.3 g/dL (14.0-18.0); MEAN CELL VOLUME 91.6 fL (80-100); MEAN CORPUSCULAR HEMOGLOBIN 30.9 pg (25-34); MEAN CORPUSCULAR HGB CONC 33.7 g/dl (32-36); PLATELET COUNT 170 K/uL (130-400); RED CELL DISTRIBUTION WIDTH CV 14.2 % (11.5-14.5); RED CELL DISTRIBUTION WIDTH SD 47.9 fL (36.4-46.3); WHITE BLOOD COUNT 4.53 K/uL (4.8-10.8)
[2017-07-05 04:38] LABS: INR 2.9 (0.9-1.1)
[2017-07-05 04:43] LABS: CALCIUM 8.7 mg/dl (8.5-10.1); CREATININE 1.07 mg/dl (0.60-1.40); POTASSIUM 3.7 mmol/L (3.5-5.1)
[2017-07-05] MEDS: METHYLPREDNISOLONE IV 40 MG in SYRINGE 0 ML IV SCH ×4 (05:02→22:54)
[2017-07-05 06:03] LABS: HEMOGLOBIN A1C 5.7 % (4.5-5.6)
[2017-07-05] MEDS: ALBUT/IPRATROP 3MG/0.5MG NEB 3 ML VIAL INH SCH ×4 (07:17→19:30)
[2017-07-05] MEDS: ATORVASTATIN 20 MG TAB PO SCH (08:31)
[2017-07-05] MEDS: LOSARTAN POTASSIUM 25 MG TAB PO SCH (08:31)
[2017-07-05] MEDS: CARVEDILOL 12.5 MG TAB PO SCH ×2 (08:31→19:48)
[2017-07-05] MEDS: AMLODIPINE BESYLATE 5 MG TAB PO SCH (08:31)
[2017-07-05] MEDS: ASPIRIN 81 MG ECTAB PO SCH (08:32)
[2017-07-05] MEDS: CITALOPRAM 40 MG TAB PO SCH (08:32)
[2017-07-05] MEDS: INSULIN ASPART 100 UNITS/ML 3 ML PEN SC SCH ×4 (08:34→20:49)
[2017-07-05] MEDS: INSULIN GLARGINE SOLOSTAR 100 UNITS/ML 3 ML PEN SC SCH ×2 (08:36→20:50)
--- NOTE | 2017-07-05 10:03 | Progress Note ---
Medicine Progress Note Date & Time of Visit: Jul 05, 2017 at 09:34. Subjective Pt was seen and examined Sitting at the edge of the bed with no distress Pt said that he continue to cough out some phlegm He said that his breathing seems to improve He denies any chest pain, palpitation, dizziness and SOB Objective Last 8 Hrs Date Time Temp Pulse Resp B/P (MAP) Pulse Ox O2 Delivery O2 Flow Rate FiO2 07/05/17 07:50 37.1 87 18 160/77 (104) 92 Nasal Cannula 2.0 07/05/17 07:20 86 20 93 Nasal Cannula 3.0 07/05/17 04:06 36.9 88 22 118/65 (82) 92 Nasal Cannula 4.0 07/05/17 04:00 Nasal Cannula 4.0 Physical Exam: General- No acute distress Head- atraumatic Eyes- PERRL, EOMI ENT- oropharynx clear Neck- supple, no JVD Lungs- mild wheezing, no crackle Heart- regular rhythm Abdomen- normal bowel sounds, soft Extremities- no calf tenderness Neuro- alert, oriented x 3; PERRL, EOMI; no facial palsy Skin- warm & dry Laboratory Results: Last 24 Hours Test 07/04/17 16:33 07/04/17 16:39 07/04/17 22:30 07/04/17 22:35 Influenza Type A (RT-PCR) Neg for Influ A Influenza Type A Antigen Neg for Influ A Influenza Type B Antigen Neg for Influ B Influenza Type B (RT-PCR) Neg for Influ B White Blood Count 7.32 K/uL Red Blood Count 4.22 M/uL Hemoglobin 13.2 g/dL Hematocrit 39.0 % Mean Corpuscular Volume 92.4 fL Mean Corpuscular Hemoglobin 31.3 pg Mean Corpuscular Hemoglobin Concent 33.8 g/dl Platelet Count 145 K/uL Mean Platelet Volume 9.8 fL Neutrophils (%) (Auto) 77.0 % Lymphocytes (%) (Auto) 15.6 % Monocytes (%) (Auto) 7.0 % Eosinophils (%) (Auto) 0.0 % Basophils (%) (Auto) 0.1 % Neutrophils # (Auto) 5.64 K/uL Lymphocytes # (Auto) 1.14 K/uL Monocytes # (Auto) 0.51 K/uL Eosinophils # (Auto) 0.00 K/uL Basophils # (Auto) 0.01 K/uL RDW Standard Deviation 48.5 fL RDW Coefficient of Variation 14.4 % Immature Granulocyte % (Auto) 0.3 % Immature Granulocyte # (Auto) 0.02 K/uL Prothrombin Time 29.4 SECONDS Prothromb Time International Ratio 2.9 Venous Blood pH 7.38 Venous Blood Partial Pressure CO2 52 mmHg Venous Blood Partial Pressure O2 28 mmHg Venous Blood HCO3 30 mmol/L Venous Blood Oxygen Saturation < 60.0 % Venous Blood Base Excess 3.7 mEq/L Sodium Level 134 mmol/L Potassium Level 3.9 mmol/L Chloride Level 100 mmol/L Carbon Dioxide Level 28 mmol/L Anion Gap 6.0 mmol/L Blood Urea Nitrogen 22 mg/dl Creatinine 0.86 mg/dl Est Creatinine Clear Calc Drug Dose 76.6 ml/min Estimated GFR () 98.3 Estimated GFR (Non- 84.8 BUN/Creatinine Ratio 25.4 Random Glucose 105 mg/dl Calcium Level 8.4 mg/dl Total Bilirubin 1.2 mg/dl Direct Bilirubin 0.3 mg/dl Aspartate Amino Transf (AST/SGOT) 37 U/L Alanine Aminotransferase (ALT/SGPT) 33 U/L Alkaline Phosphatase 94 U/L Troponin I 1.230 ng/ml 1.430 ng/ml Pro-B-Type Natriuretic Peptide 2522 pg/ml Total Protein 7.5 gm/dl Albumin 3.0 gm/dl Lipase 51 U/L Digoxin Level 0.4 ng/ml Bedside Glucose 141 mg/dl Test 07/05/17 04:02 07/05/17 06:30 White Blood Count 4.53 K/uL Red Blood Count 4.63 M/uL Hemoglobin 14.3 g/dL Hematocrit 42.4 % Mean Corpuscular Volume 91.6 fL Mean Corpuscular Hemoglobin 30.9 pg Mean Corpuscular Hemoglobin Concent 33.7 g/dl RDW Standard Deviation 47.9 fL RDW Coefficient of Variation 14.2 % Platelet Count 170 K/uL Mean Platelet Volume 10.0 fL Prothrombin Time 29.4 SECONDS Prothromb Time International Ratio 2.9 Sodium Level 135 mmol/L Potassium Level 3.7 mmol/L Chloride Level 98 mmol/L Carbon Dioxide Level 26 mmol/L Anion Gap 11.0 mmol/L Blood Urea Nitrogen 19 mg/dl Creatinine 1.07 mg/dl Est Creatinine Clear Calc Drug Dose 61.6 ml/min Estimated GFR () 78.3 Estimated GFR (Non- 67.5 BUN/Creatinine Ratio 17.7 Random Glucose 174 mg/dl Estimated Average Glucose 117 mg/dl Hemoglobin A1c 5.7 % Calcium Level 8.7 mg/dl Magnesium Level 1.9 mg/dl Troponin I 1.500 ng/ml Pro-B-Type Natriuretic Peptide 4477 pg/ml Bedside Glucose 165 mg/dl Assessment & Plan Hypoxia Possible related to COPD exacerbation vs diastolic heart failure exacerbation. CXR showed interval development of pulmonary edema with probable small bilateral pleural effusions. Influenza antigen and Ab negative ProBNP 4477 (Elevated) Received Lasix 20mg IVx1 On solumedrol 40mg IV q6h and Levaquin 750mg Will taper solumedrol to 40mg BID Continue respiratory treatment and oxygen supplement Clinically improved Elevated troponin Possible related to hypoxia Denies any chest pain Troponin peak to 1.5 EKG showed non specific ST changes Cardiology consulted Follow up on troponin No heparin since pt is on Coumadin and INR is therapeutic Continue aspirin, statin and coreg Echo pending Continue monitor in tele Chronic atrial fibrillation Rate controlled with Coreg, on digoxin. Continue anticoagulation with Coumadin INR 2.9 Diabetes mellitus type 2 Hba1c 5.7 Continue holding metformin and glipizide. Continue Insulin sliding scale and Lantus Bilateral carotid artery stenosis Stable CKD stage III Creatine stable History of bladder cancer No urinary issues at this time Stable DVT prophylaxis On warfarin, INR 2.9 CODE STATUS FULL CODE Disposition Continue monitor in telemetry Current Inpatient Medications: Current Inpatient Medications Medications (Trade) Dose Ordered Sig/Lynette Route Start Time Stop Time Status Last Admin Dose Admin Acetaminophen (Tylenol Tab) 650 mg Q4H PRN PO 07/04/17 20:45 08/03/17 20:44 Ondansetron HCl (Zofran Inj) 4 mg Q6H PRN IV 07/04/17 20:45 08/03/17 20:44 Polyethylene (Miralax Powder Packet) 17 gm DAILY PRN PO 07/04/17 20:45 08/03/17 20:44 Insulin Glargine (Lantus Solostar Pen) 6 units Q12 SC 07/04/17 21:00 08/03/17 20:59 07/05/17 08:36 6 UNITS Insulin Aspart (novoLOG ASPART) SLIDING SCALE If C... ACHS SC 07/04/17 21:00 08/03/17 20:59 07/05/17 08:34 6 UNITS Glucose (Glucose 40% Gel) 15-30 GRAMS 15 GRAMS... UD PRN PO 07/04/17 20:45 08/03/17 20:44 Glucose (Glucose Chew Tab) 4-8 Tablets 4 Tabl... UD PRN PO 07/04/17 20:45 08/03/17 20:44 Dextrose (Dextrose 50% 50ML Syringe) 25-50ML OF 50% DW IV FOR... UD PRN IV 07/04/17 20:45 08/03/17 20:44 Glucagon (Glucagon Inj) 1 mg UD PRN SQ 07/04/17 20:45 08/03/17 20:44 Levofloxacin 750 mg/Prmx 150 ml @ 100 mls/hr Q24H IV 07/04/17 22:00 07/11/17 20:44 07/04/17 22:38 100 MLS/HR Albuterol/ Ipratropium (Duoneb) 3 ml QIDR INH 07/05/17 08:00 08/04/17 07:59 07/05/17 07:17 3 ML Methylprednisolone Sodium Succinate 40 mg/Syringe 0.64 ml @ 1.5 mls/min Q6H IV 07/04/17 22:00 08/03/17 20:44 07/05/17 05:02 1.5 MLS/MIN Aspirin (Ecotrin Tab) 81 mg QAM PO 07/05/17 09:00 08/04/17 08:59 07/05/17 08:32 81 MG Amlodipine Besylate (Norvasc Tab) 10 mg DAILY PO 07/05/17 09:00 08/04/17 08:59 07/05/17 08:31 10 MG Atorvastatin Calcium (Lipitor Tab) 20 mg DAILY PO 07/05/17 09:00 08/04/17 08:59 07/05/17 08:31 20 MG Carvedilol (Coreg Tab) 12.5 mg BID PO 07/05/17 09:00 08/04/17 08:59 07/05/17 08:31 12.5 MG Citalopram Hydrobromide (celeXA TAB) 40 mg DAILY PO 07/05/17 09:00 08/04/17 08:59 07/05/17 08:32 40 MG Digoxin (Lanoxin Tab) 0.125 mg DAILY@1600 PO 07/05/17 16:00 08/04/17 15:59 Losartan Potassium (coZAAR TAB) 25 mg DAILY PO 07/05/17 09:00 08/04/17 08:59 07/05/17 08:31 25 MG Warfarin Sodium (Coumadin Tab) 5 mg SuSa@1600 PO 07/09/17 16:00 08/08/17 15:59 Warfarin Sodium (Coumadin Tab) 2.5 mg MoTuWeThFr@1600 PO 07/05/17 16:00 08/04/17 15:59
--- NOTE | 2017-07-05 10:51 | Clinical Documentation Query ---
CLINICAL DOCUMENTATION QUERY 77 year old male who presents to the Emergency Room with complaints of persistent sob. Troponin's have trended upward to peak of 1.5 with EKG with ? of anterior infarct. In your clinical opinion is this patient being managed for: ( ) Non-ST elevation (NSTEMI) myocardial infarction causing CHF ( ) Type II CT in setting of hypoxia due to COPD exacerbation and CHF exacerbation ( ) Not Agree ( ) Other explanation of clinical findings (Please Explain) ( ) Unable to determine (Please Define) ( ) Need to Discuss The medical record reflects the following clinical findings, treatment, and risk factors. Clinical Indicators: ECG showing possibility of anterior infarction, New onset of acute CHF, Troponin's 1.230, 1.430, 1.500, Hypoxia of 75% on RA Treatment: O2, serial troponin's, cardiology consult, echo, ASA, Warfarin Risk Factors: Age, CAD, CHF and COPD exacerbation Please clarify and document your clinical opinion in the progress notes and discharge summary. Terms such as "probable", "suspected", "likely", "questionable", "possible", or "still to be ruled out" are acceptable. IF IN AGREEMENT, YOU MUST DOCUMENT ABOVE DIAGNOSTIC STATEMENT IN DAILY PROGRESS NOTES AND DISCHARGE SUMMARY. This document is not part of the patient's record. Thank You, Chandrakant Antony, RICKEY [phone]
--- NOTE | 2017-07-05 12:46 | Cardiology Consultation ---
Cardiology Consultation Date of Service Jul 05, 2017. (Margaret Castaneda PA-C) 07/05/17 (Jhonny Carlson,D.O.) Cardiology Consultation Attending Veterinary Parasitologist: Dr. Carlson Requesting Provider: Dr. Sanchez Re: Elevated troponin; hypoxia HPI: Patient is a 77 year old male with complex history. He follows with Dr. Jeffy Pruitt of our cardiology practice for history of non ischemic cardiomyopathy, without obstructive CAD at that time in 2001, interval improvement in LV function with medical therapy. No recent echo on file (last in 2009). 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 Gen change in November 2016. He has a history of b/l carotid vascular disease s/p b/l CEA in 2009. Underlying chronic tobacco abuse and COPD also noted. Patient presented to [facility] yesterday with concerns regarding dyspnea on exertion. Intiially symptoms began last week with increased cough, congestion and mild dyspnea. Yesterday he noted difficulty ambulating from bed to bathroom without significant exertional dyspnea. He called 911. He denies chest pain. No fever or chills. He notes cough, wheeze. No orhtopnea, PND or edema. No dyspnea at rest. No recent weight gain. No dizziness, syncope or near syncope. Upon arrival in ER, he was found to be hypoxic with oxygen saturations in the 70s. He was started on supplemental O2, treated with nebulizer, steroids, antibiotics, IV furosemide. Chest x-ray revealed pulmonary vascular congestion with small bilateral pleural effusions. Troponin elevated at 1.[address] arrival[address] EKG with ST/T wave abnormality in inferior and lateral leads, not overtly changed from previous. He denied chest pain on arrival. He was admitted for probable COPD exacerbation with mixed CHF, etiology uncertain. No recent echo. At time of consult this morning patient is feeling much improved. He remains on supplemental O2 however he notes great improvement in his cough and shortness of breath with exertion. No chest pain. No dizziness, syncope or near-syncope. No orthopnea, PND, lower extremity edema. No recent weight gain. Review of Systems: See above for pertinent positives & negatives. A total of 10 systems reviewed and were otherwise negative. PMH: Medical Problems: Chronic A-fib Bilateral carotid artery stenosis s/p B/L CEA COPD Chronic tobacco abuse DM CKD HTN Pacemaker Bladder CA Surgical History: B/L CEA - 07/2009 and 10/2009 Cystooscy - multiple Removal of bladder tumor - multiple Cholecystectomy Family History: Father age 52, presumed [place] Social History: Chronic tobacco abuse. No alcohol abuse. ALLERGIES: Review of patient's allergies indicates: No Known Allergies MEDICATIONS: Reported Home Medications Medications Dose Route/Sig Max Daily Dose Days Date Category Dose Instructions Digoxin 0.125 Mg Tab 0.125 Mg PO DAILY 07/04/17 Reported Glucotrol (Glipizide) 10 Mg Tab 20 Mg PO BID 07/04/17 Reported Norvasc (Amlodipine Besylate) 10 Mg Tab 10 Mg PO DAILY 07/04/17 Reported Losartan Potassium 50 Mg Tab 25 Mg PO DAILY 07/04/17 Reported Hctz (Hydrochlorothiazide) 25 Mg Tab 25 Mg PO 3XWK 07/04/17 Reported Tuesday AND TUESDAY Jantoven (Warfarin Sodium) 5 Mg Tab 2.5 Mg PO MTWRF 07/04/17 Reported TUESDAY, TUESDAY, AND TUESDAY Coumadin (Warfarin Sod) 5 Mg Tab 5 Mg PO SATSUN 07/04/17 Reported TUESDAY, TUESDAY, TUESDAY, AND TUESDAY Lipitor (Atorvastatin Calcium) 20 Mg Tab 20 Mg PO DAILY 07/04/17 Reported Glucophage (Metformin Hcl) 500 Mg Tab 500 Mg PO BID 07/04/17 Reported Citalopram Hydrobromide (Citalopram) 40 Mg Tab 40 Mg PO DAILY 07/04/17 Reported Aspirin Ec (Aspirin) 81 Mg Tab 81 Mg PO DAILY 07/04/17 Reported Coreg (Carvedilol) 12.5 Mg Tab 12.5 Mg PO BID 07/04/17 Reported PHYSICAL EXAMINATION Last 8 Hrs Date Time Temp Pulse Resp B/P (MAP) Pulse Ox O2 Delivery O2 Flow Rate FiO2 07/05/17 07:50 37.1 87 18 160/77 (104) 92 Nasal Cannula 2.0 07/05/17 07:20 86 20 93 Nasal Cannula 3.0 07/05/17 04:06 36.9 88 22 118/65 (82) 92 Nasal Cannula 4.0 07/05/17 04:00 Nasal Cannula 4.0 GEN: A+Ox3. NAD. HEENT examination is normocephalic and atraumatic. Neck is thin. There is no audible bruit b/l. Lungs demonstrate scattered rhonchi. No appreciated rales. Cardiovascular exam is irregular, irregular with intermittent pacing. There is no S-3 gallop. Abdomen was soft, nontender. Extremities without cyanosis or clubbing. There is no peripheral edema. There are intact distal pulses. Pacer site is without irritation or tenderness. DATA: chest xray on admission: IMPRESSION: Interval development of pulmonary edema with probable small bilateral pleural effusions. EKG on admission: Atrial fibrillation with controlled ventricular response. Old anteroseptal infarct ST/T wave abnormality/depression noted in inferior and lateral leads Repeat EKG this AM - Afib with controlled response - ST/T wave abnormality in inferior leads, unchanged from previous. ST/T wave depression in lateral leads mildly improved. Telemetry - afib, controlled rates, with intermittent pacing Pacemaker interrogation completed with [employer] rep- Appropriate pacemaker function. Intermittent pacing with chronic atrial fibrillation. Last 24 Hours Test 07/04/17 16:33 07/04/17 16:39 07/04/17 22:30 07/04/17 22:35 Influenza Type A (RT-PCR) Neg for Influ A Influenza Type A Antigen Neg for Influ A Influenza Type B Antigen Neg for Influ B Influenza Type B (RT-PCR) Neg for Influ B White Blood Count 7.32 K/uL Red Blood Count 4.22 M/uL Hemoglobin 13.2 g/dL Hematocrit 39.0 % Mean Corpuscular Volume 92.4 fL Mean Corpuscular Hemoglobin 31.3 pg Mean Corpuscular Hemoglobin Concent 33.8 g/dl Platelet Count 145 K/uL Mean Platelet Volume 9.8 fL Neutrophils (%) (Auto) 77.0 % Lymphocytes (%) (Auto) 15.6 % Monocytes (%) (Auto) 7.0 % Eosinophils (%) (Auto) 0.0 % Basophils (%) (Auto) 0.1 % Neutrophils # (Auto) 5.64 K/uL Lymphocytes # (Auto) 1.14 K/uL Monocytes # (Auto) 0.51 K/uL Eosinophils # (Auto) 0.00 K/uL Basophils # (Auto) 0.01 K/uL RDW Standard Deviation 48.5 fL RDW Coefficient of Variation 14.4 % Immature Granulocyte % (Auto) 0.3 % Immature Granulocyte # (Auto) 0.02 K/uL Prothrombin Time 29.4 SECONDS Prothromb Time International Ratio 2.9 Venous Blood pH 7.38 Venous Blood Partial Pressure CO2 52 mmHg Venous Blood Partial Pressure O2 28 mmHg Venous Blood HCO3 30 mmol/L Venous Blood Oxygen Saturation < 60.0 % Venous Blood Base Excess 3.7 mEq/L Sodium Level 134 mmol/L Potassium Level 3.9 mmol/L Chloride Level 100 mmol/L Carbon Dioxide Level 28 mmol/L Anion Gap 6.0 mmol/L Blood Urea Nitrogen 22 mg/dl Creatinine 0.86 mg/dl Est Creatinine Clear Calc Drug Dose 76.6 ml/min Estimated GFR () 98.3 Estimated GFR (Non- 84.8 BUN/Creatinine Ratio 25.4 Random Glucose 105 mg/dl Calcium Level 8.4 mg/dl Total Bilirubin 1.2 mg/dl Direct Bilirubin 0.3 mg/dl Aspartate Amino Transf (AST/SGOT) 37 U/L Alanine Aminotransferase (ALT/SGPT) 33 U/L Alkaline Phosphatase 94 U/L Troponin I 1.230 ng/ml 1.430 ng/ml Pro-B-Type Natriuretic Peptide 2522 pg/ml Total Protein 7.5 gm/dl Albumin 3.0 gm/dl Lipase 51 U/L Digoxin Level 0.4 ng/ml Bedside Glucose 141 mg/dl Test 07/05/17 04:02 07/05/17 06:30 07/05/17 10:02 07/05/17 10:44 White Blood Count 4.53 K/uL Red Blood Count 4.63 M/uL Hemoglobin 14.3 g/dL Hematocrit 42.4 % Mean Corpuscular Volume 91.6 fL Mean Corpuscular Hemoglobin 30.9 pg Mean Corpuscular Hemoglobin Concent 33.7 g/dl RDW Standard Deviation 47.9 fL RDW Coefficient of Variation 14.2 % Platelet Count 170 K/uL Mean Platelet Volume 10.0 fL Prothrombin Time 29.4 SECONDS Prothromb Time International Ratio 2.9 Sodium Level 135 mmol/L Potassium Level 3.7 mmol/L Chloride Level 98 mmol/L Carbon Dioxide Level 26 mmol/L Anion Gap 11.0 mmol/L Blood Urea Nitrogen 19 mg/dl Creatinine 1.07 mg/dl Est Creatinine Clear Calc Drug Dose 61.6 ml/min Estimated GFR () 78.3 Estimated GFR (Non- 67.5 BUN/Creatinine Ratio 17.7 Random Glucose 174 mg/dl Estimated Average Glucose 117 mg/dl Hemoglobin A1c 5.7 % Calcium Level 8.7 mg/dl Magnesium Level 1.9 mg/dl Troponin I 1.500 ng/ml 1.450 ng/ml Pro-B-Type Natriuretic Peptide 4477 pg/ml Bedside Glucose 165 mg/dl 184 mg/dl IMPRESSION: 77-year-old male 1. Acute respiratory distress syndrome wiht hypoxia on arrival 2. COPD exacerbation 3. Elevated troponin consistent with demand ischemia given severe hypoxia on arrival. No CP. L 4. Mild CHF exacerbation, likely diastolic. Await echo. 5. History of non ischemic cardiomyop[athy in 2002, wiht interval improvement in LV function. No recent echo 6. Chronic atrial fibrillation - on coumadin. Rates controlled 7. Pacemaker, recent gen change - approrpriate funtion per interorgation this AM. 8. Chronic tobacco abuse 9. Carotid vascular disease s/p CEA Plan: Await echo Continue treatment for COPD exacerbation Patient does not examine as volume overload. Good diuresis wiht one dose of IV furosemide. No indication for repeat diuretics at this time. Continue all other home medications He has no current anginal symptoms. Multiple risk factors for CAD. May need ischemic work up given elevated troponin when respiratory status is at baseline. Case discussed with Dr. Carlson. Will follow. (Margaret Castaneda PA-C) CARDIOLOGY ATTENDING ADDENDUM: The patient was seen and personally examined. Agree with Margaret Castaneda PA-C's findings and plans as documented above with additions as noted below. Patient states he feels drastically improved compared to when he presented to the emergency room. He denies chest discomfort and states his breathing is close to being back to its baseline. He denies any angina. Physical exam Cardiovascular regular, 1/6 murmur heard best at the left apex Lungs: Wheezing has apparently improved since I appreciate no significant wheezing on my exam Extremities no significant edema Data: Transthoracic echocardiogram performed today 07/05/17 are reviewed and apparently by the undersigned: Mild concentric left ventricular hypertrophy is present. Left ventricular wall motion is normal without regional wall motion abnormality' s. The left ventricular ejection fraction is normal at 55-60%. Right ventricular size and systolic function are normal. Mild pulmonary hypertension is present. The catheter pulmonary artery systolic pressure is 46 mmHg. Severe mitral annular calcification is present. Moderate to severe mitral regurgitation is present. Borderline to mild mitral valve stenosis is present with a mean gradient 5 mmHg. Mild valvular aortic stenosis present. Impression: Acute COPD exacerbation with resultant transient hypoxia, resultant troponin elevation due to myocardial strain in setting of systemic hypoxia. The poor R-wave progression noted in leads V1 to V3 on EKG are chronic findings. Given the patient's underlying valvular heart disease, I do not think this degree of elevation his troponin is surprising. I do not think this represents an acute coronary syndrome. Plan: Continue current cardiac medications. Agree with treatment with corticosteroids and levofloxacin. We will need to monitor his INR closely given administration of antibiotics. (Jhonny Carlson,D.O.)
--- NOTE | 2017-07-05 16:25 | ECHOCARDIOGRAM REPORT ---
*NOTICE TO RECEIVING [employer] This information is strictly Confidential and protected under [place] law. [place] law prohibits you from making any further disclosure of this information unless further disclosure is expressly permitted by the written consent of the person to whom it pertains or is authorized by law. A general authorization for the release of medical or other information is not sufficient for this purpose. Hospital accepts no responsibility if the information is made available to any other person, INCLUDING THE PATIENT. Interpretation Summary * Name: YARITZA CORREA Study Date: 07/05/2017 05:33 AM BP: 118/65 mmHg * Patient Location: [facility] HR: 88 * : 1940 (M/d/yyyy) Gender: Male Height: 70 in * Age: 77 yrs Ethnicity: CA Weight: 184 lb * Ordering Physician: Amairani Sanchez * Referring Physician: Self, Referred * Performed By: Tamara Bedolla RDCS * * Reason For Study: Elevated Troponin, Shortness of Breath * BSA: 2.0 m2 * -- Conclusions -- * The left ventricular wall motion is normal. * There is mild concentric left ventricular hypertrophy. * Ejection Fraction = 55-60%. * The right ventricle is normal in size and function. * There is mild tricuspid regurgitation. * Mild pulmonary hypertension is present. * The calculated pulmonary artery systolic pressure is 46 mmHg, assuming a right atrial pressure of 3 mmHg. * There is severe mitral annular calcification. * There is moderate to severe mitral regurgitation. * Borderline to mild mitral valve stenosis is present with a mean gradient of 5 mmHg. * Mild valvular aortic stenosis is present. Procedure Details * A complete two-dimensional transthoracic echocardiogram was performed (2D, M-mode, Doppler and color flow Doppler). Left Ventricle * The left ventricle is normal in size. * There is mild concentric left ventricular hypertrophy. * Left ventricular systolic function is normal. * Ejection Fraction = 55-60%. * The left ventricular wall motion is normal. Right Ventricle * There is a pacemaker lead in the right ventricle. * The right ventricle is normal in size and function. Atria * The left atrium is severely dilated. * Right atrial size is normal. * Pacemaker lead is noted in the right atrium. * There is no evidence of atrial septal defect, but resolution does not allow assessment for a patent foramen ovale. Mitral Valve * There is severe mitral annular calcification. * Borderline to mild mitral valve stenosis is present with a mean gradient of 5 mmHg. * There is moderate to severe mitral regurgitation. Tricuspid Valve * The tricuspid valve is normal. * There is no tricuspid stenosis. * There is mild tricuspid regurgitation. * Mild pulmonary hypertension is present. The calculated pulmonary artery systolic pressure is 46 mmHg, assuming a right atrial pressure of 3 mmHg. Aortic Valve * The aortic valve is trileaflet. * Mild valvular aortic stenosis. * There is no significant aortic regurgitation. Pulmonic Valve * The pulmonary valve is not well seen, but the Doppler examination is normal without significant regurgitation or stenosis. Great Vessels * The aortic root and proximal ascending aorta are normal sized. Pericardium/Pleural * There is no pericardial effusion. Great Vessels * Normal inferior vena cava diameter and respiratory variation suggests normal central venous pressure. MMode 2D Measurements and Calculations IVSd 1.3 cm IVSs 1.2 cm LVIDd 4.8 cm LVIDs 3.4 cm LVPWd 1.4 cm LVPWs 1.9 cm IVS/LVPW 0.93 FS 29.6 % EDV(Teich) 106.4 ml ESV(Teich) 46.2 ml EF(Teich) 56.6 % EDV(cubed) 109.2 ml ESV(cubed) 38.0 ml EF(cubed) 65.2 % % IVS thick -3.06 % % LVPW thick 40.7 % LV mass(C)d 248.2 grams LV mass(C)dI 123.2 grams/m\S\2 LV mass(C)s 198.4 grams LV mass(C)sI 98.5 grams/m\S\2 SV(Teich) 60.2 ml SI(Teich) 29.9 ml/m\S\2 SV(cubed) 71.1 ml SI(cubed) 35.3 ml/m\S\2 Ao root diam 3.2 cm Ao root area 8.1 cm\S\2 ACS 1.4 cm LA dimension 5.4 cm LA/Ao 1.7 LVOT diam 2.0 cm LVOT area 3.1 cm\S\2 LVAd ap4 30.7 cm\S\2 LVLd ap4 8.7 cm EDV(MOD-sp4) 99.9 ml EDV(sp4-el) 92.3 ml LVAs ap4 19.3 cm\S\2 LVLs ap4 7.9 cm ESV(MOD-sp4) 46.1 ml ESV(sp4-el) 40.1 ml EF(MOD-sp4) 53.9 % EF(sp4-el) 56.5 % LVAd ap2 25.8 cm\S\2 LVLd ap2 8.4 cm EDV(MOD-sp2) 73.2 ml EDV(sp2-el) 67.5 ml LVAs ap2 16.5 cm\S\2 LVLs ap2 7.7 cm ESV(MOD-sp2) 34.2 ml ESV(sp2-el) 30.1 ml EF(MOD-sp2) 53.3 % EF(sp2-el) 55.4 % LVLd %diff -3.94 % EDV(MOD-bp) 87.2 ml LVLs %diff -2.52 % ESV(MOD-bp) 38.8 ml EF(MOD-bp) 55.5 % SV(MOD-sp4) 53.8 ml SI(MOD-sp4) 26.7 ml/m\S\2 SV(MOD-sp2) 39.0 ml SI(MOD-sp2) 19.4 ml/m\S\2 SV(MOD-bp) 48.4 ml SI(MOD-bp) 24.0 ml/m\S\2 SV(sp4-el) 52.2 ml SI(sp4-el) 25.9 ml/m\S\2 SV(sp2-el) 37.4 ml SI(sp2-el) 18.6 ml/m\S\2 Doppler Measurements and Calculations MV E max jenn 189.3 cm/sec MV V2 max 206.2 cm/sec MV max PG 17.0 mmHg MV V2 mean 109.5 cm/sec MV mean PG 5.9 mmHg MV V2 VTI 39.8 cm MVA(VTI) 1.2 cm\S\2 MV P1/2t max jenn 204.0 cm/sec MV P1/2t 75.9 msec MVA(P1/2t) 2.9 cm\S\2 MV dec slope 787.6 cm/sec\S\2 MV dec time 0.24 sec Ao V2 max 185.1 cm/sec Ao max PG 13.7 mmHg Ao max PG (full) 10.9 mmHg Ao V2 mean 130.7 cm/sec Ao mean PG 7.5 mmHg Ao mean PG (full) 6.0 mmHg Ao V2 VTI 38.6 cm KELVIN(I,A) 1.3 cm\S\2 KELVIN(I,D) 1.3 cm\S\2 KELVIN(V,A) 1.4 cm\S\2 KELVIN(V,D) 1.4 cm\S\2 LV V1 max PG 2.8 mmHg LV V1 mean PG 1.5 mmHg LV V1 max 82.9 cm/sec LV V1 mean 58.2 cm/sec LV V1 VTI 16.2 cm MR max jenn 553.9 cm/sec MR max PG 122.7 mmHg MR mean jenn 412.0 cm/sec MR mean PG 76.5 mmHg MR VTI 157.4 cm MR PISA 1.5 cm\S\2 MR PISA radius 0.49 cm SV(Ao) 314.0 ml SI(Ao) 155.9 ml/m\S\2 SV(LVOT) 49.4 ml SI(LVOT) 24.5 ml/m\S\2 PA V2 max 88.9 cm/sec PA max PG 3.2 mmHg TR max jenn 282.3 cm/sec
[2017-07-05] MEDS: WARFARIN SOD 2.5 MG TAB PO SCH (17:51)
[2017-07-05] MEDS: DIGOXIN 0.125 MG TAB PO SCH (17:52)
[2017-07-05] MEDS: LEVOFLOXACIN / D5W 750 MG in PREMIXED IN D5W 150 ML IV SCH (20:46)
[2017-07-06] VITALS (9 sets, daily range): BP systolic 112–138; BP diastolic 57–72; PULSE 59–76; TEMP 36.5–36.9; O2SAT 90–97
[2017-07-06] MEDS: METHYLPREDNISOLONE IV 40 MG in SYRINGE 0 ML IV SCH ×3 (04:11→16:44)
[2017-07-06] MEDS: ALBUT/IPRATROP 3MG/0.5MG NEB 3 ML VIAL INH SCH ×4 (07:07→19:28)
[2017-07-06] MEDS: INSULIN ASPART 100 UNITS/ML 3 ML PEN SC SCH ×4 (08:17→20:37)
[2017-07-06] MEDS: CITALOPRAM 40 MG TAB PO SCH (08:21)
[2017-07-06] MEDS: CARVEDILOL 12.5 MG TAB PO SCH ×2 (08:22→20:37)
[2017-07-06] MEDS: ASPIRIN 81 MG ECTAB PO SCH (08:22)
[2017-07-06] MEDS: LOSARTAN POTASSIUM 25 MG TAB PO SCH (08:22)
[2017-07-06] MEDS: ATORVASTATIN 20 MG TAB PO SCH (08:23)
[2017-07-06] MEDS: AMLODIPINE BESYLATE 5 MG TAB PO SCH (08:23)
[2017-07-06] MEDS: INSULIN GLARGINE SOLOSTAR 100 UNITS/ML 3 ML PEN SC SCH ×2 (08:26→21:00)
--- NOTE | 2017-07-06 12:21 | Cardiology Follow-Up ---
Subjective General Date of Service: Jul 06, 2017. Chief Complaint: SOB; cough Pt evaluation today including: conversation w/ patient, physical exam, chart review, lab review, review of studies, review of inpatient medication list History of Present Illness Patient feeling ok. Notes ongoing cough, improved from admission but remains persistent. Dyspnea improving. No orthopnea, PND. No LE edema. No chest pain. No palpitations or dizziness. Allergies Coded Allergies: No Known Allergies (Verified , 07/04/17) Social History Smoking Status: Current Every Day Smoker Hx Tobacco Use In Past Year?: Yes (1 PACK/DAY) Hx Alcohol Use - Type And Amou: No Hx Substance Use - Type And Am: No Problem List Medical Problems: (1) Pulmonary edema Status: Acute Review of Systems Respiratory: + cough, + sputum, + wheezing, + dyspnea on exertion, No shortness of breath, No dyspnea at rest Cardiac: No chest pain, No orthopnea, No PND, No edema, No palpitations Physical Exam Vital Signs Last Vital Signs Documentation Date Time Temp Pulse Resp B/P (MAP) Pulse Ox O2 Delivery O2 Flow Rate FiO2 07/06/17 11:07 36.9 66 18 112/72 (85) 97 Nasal Cannula 2.0 Physical Exam Constitutional: General Apperance: well-nourished Level of Distress: NAD, chronically ill Ambulation: ambulating normally Psychiatric: Mental Status: active & alert Orientation: to time, to place, to person Head: normocephalic Eyes: Pupils: PERRLA Neck: supple Lungs: Auscultation: deminished air movement, decreased breath sounds Cardiovascular: Heart Auscultation: II/ ROXANN, irregular rate rhythm Extremities: no edema Assessment and Plan Assessment and Plan 77-year-old male 1. Acute COPD exacerbation with hypoxia 2. 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 NSTEMI secondary to demand ischemia in the setting of severe hypoxia. Not indicative of ACS. No acute EKG changes. No chest pain. 4. Moderate to severe Mitral regurgitation, mild mitral stenosis, mild with preserved LV function on echo. 5. 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 7. Pacemaker, recent gen change - appropriate function per interorgation this AM. 8. Chronic tobacco abuse 9. Carotid vascular disease s/p CEA Plan: Ongoing cough, repeat xray Low threshold to add low dose diuretic due to moderate/severe valvular heart disease. Continue treatments for COPD exacerbation per hospitalist. Continue all other cardiac medications. Once respiratory status improves/at baseline, consider outpatient ischemic work up given elevated troponin. Case discussed with Dr. Carlson. Will follow. CARDIOLOGY ATTENDING ADDENDUM: The patient was seen and personally examined. Agree with Margaret Castaneda PA-C's findings and plans as documented above with additions as noted below. S: feels better at present. Exam: decreased BS at bases. Cough improved. Imp: multifactorial SOB , AECOPD, acute diastolic HF. Trop elevation due to myocardial strain in setting of severe transient hypoxia. Plan: add low dose furosemide back tomorrow am, follow renal function. Laboratory Results Last 24 Hours Test 07/05/17 16:12 07/05/17 20:43 07/06/17 06:09 07/06/17 06:49 Bedside Glucose 180 mg/dl 125 mg/dl 177 mg/dl Prothrombin Time 20.4 SECONDS Prothromb Time International Ratio 2.0 Test 07/06/17 10:52 Bedside Glucose 180 mg/dl
--- NOTE | 2017-07-06 13:27 | DIAGNOSTIC IMAGING REPORT ---
CHEST 2 VIEWS ROUTINE HISTORY: 77 years-old Male cough; Eval pleural effusions; CHF acute cough COMPARISON: Chest radiograph 07/04/2017 TECHNIQUE: PA and lateral views of the chest FINDINGS: Cardiac silhouette is mildly enlarged, unchanged. Left subclavian pacer is again noted with leads unchanged. There is no pneumothorax. Small bilateral pleural effusions with mild pulmonary vascular congestion. Lungs are mildly hyperinflated. There is improved aeration of the bilateral lungs from comparison with persistent hazy bibasilar opacities. Severe degenerative changes about the right shoulder. Degenerative changes also seen throughout the spine. IMPRESSION: 1. Cardiomegaly and pulmonary vascular congestion with decreased pulmonary edema from comparison. 2. Small bilateral pleural effusions with hazy bibasilar opacities suggesting atelectasis or pneumonitis. The above report was generated using voice recognition software. It may contain grammatical, syntax or spelling errors. Electronically signed by: Matt Del Rosario M.D. 07/06/2017 1:26 PM Dictated Date/Time: 07/06/2017 1:18 PM
[2017-07-06] MEDS: DIGOXIN 0.125 MG TAB PO SCH (16:44)
[2017-07-06] MEDS: WARFARIN SOD 2.5 MG TAB PO SCH (16:45)
--- NOTE | 2017-07-06 17:34 | Progress Note ---
Medicine Progress Note Date & Time of Visit: Jul 06, 2017 at 17:25. Subjective Pt was seen and examined Sitting in bed with no distress Pt said that breathing is much better He said that he coughed out phlegm after getting the breathing treatment Denies and chest pain, palpitation, dizziness and SOB Objective Last 8 Hrs Date Time Temp Pulse Resp B/P (MAP) Pulse Ox O2 Delivery O2 Flow Rate FiO2 07/06/17 16:44 64 07/06/17 15:31 59 18 91 Nasal Cannula 2.0 07/06/17 15:22 36.5 70 20 128/57 (80) 90 Nasal Cannula 3.0 07/06/17 12:00 Nasal Cannula 2.0 07/06/17 11:07 36.9 66 18 112/72 (85) 97 Nasal Cannula 2.0 07/06/17 11:01 69 18 94 Nasal Cannula 2.0 07/06/17 10:02 Nasal Cannula 2.0 Physical Exam: General- No acute distress Head- atraumatic Eyes- PERRL, EOMI ENT- oropharynx clear Neck- supple, no JVD Lungs- no wheezing, no crackle Heart- regular rhythm Abdomen- normal bowel sounds, soft Extremities- no calf tenderness Neuro- alert, oriented x 3; PERRL, EOMI; no facial palsy Skin- warm & dry Laboratory Results: Last 24 Hours Test 07/05/17 20:43 07/06/17 06:09 07/06/17 06:49 07/06/17 10:52 Bedside Glucose 125 mg/dl 177 mg/dl 180 mg/dl Prothrombin Time 20.4 SECONDS Prothromb Time International Ratio 2.0 Test 07/06/17 16:07 Bedside Glucose 138 mg/dl Assessment & Plan Hypoxia Possible related to COPD exacerbation vs diastolic heart failure exacerbation. CXR showed interval development of pulmonary edema with probable small bilateral pleural effusions. Influenza antigen and Ab negative ProBNP 4477 (Elevated) Received Lasix 20mg IVx1 On solumedrol 40mg IV q6h and Levaquin 750mg Will taper solumedrol to 40mg daily and transition to oral prednisone tomorrow Continue respiratory treatment and oxygen supplement Clinically improved Elevated troponin Possible related to hypoxia Denies any chest pain Troponin peak to 1.5 EKG showed non specific ST changes Cardiology consulted Follow up on troponin No heparin since pt is on Coumadin and INR is therapeutic Continue aspirin, statin and coreg Will need cardiac workup once stable Continue monitor in tele ECHO showed * The left ventricular wall motion is normal. * There is mild concentric left ventricular hypertrophy. * Ejection Fraction = 55-60%. * The right ventricle is normal in size and function. * There is mild tricuspid regurgitation. * Mild pulmonary hypertension is present. * The calculated pulmonary artery systolic pressure is 46 mmHg, assuming a right atrial pressure of 3 mmHg. * There is severe mitral annular calcification. * There is moderate to severe mitral regurgitation. * Borderline to mild mitral valve stenosis is present with a mean gradient of 5 mmHg. * Mild valvular aortic stenosis is present. Chronic atrial fibrillation Rate controlled with Coreg, on digoxin. Continue anticoagulation with Coumadin INR 2 Diabetes mellitus type 2 Hba1c 5.7 Continue holding metformin and glipizide. Continue Insulin sliding scale and Lantus Bilateral carotid artery stenosis Stable CKD stage III Creatine stable History of bladder cancer No urinary issues at this time Stable DVT prophylaxis On warfarin, INR 2 CODE STATUS FULL CODE Disposition Continue monitor in telemetry Current Inpatient Medications: Current Inpatient Medications Medications (Trade) Dose Ordered Sig/Lynette Route Start Time Stop Time Status Last Admin Dose Admin Acetaminophen (Tylenol Tab) 650 mg Q4H PRN PO 07/04/17 20:45 08/03/17 20:44 Ondansetron HCl (Zofran Inj) 4 mg Q6H PRN IV 07/04/17 20:45 08/03/17 20:44 Polyethylene (Miralax Powder Packet) 17 gm DAILY PRN PO 07/04/17 20:45 08/03/17 20:44 Insulin Glargine (Lantus Solostar Pen) 6 units Q12 SC 07/04/17 21:00 08/03/17 20:59 07/06/17 08:26 6 UNITS Insulin Aspart (novoLOG ASPART) SLIDING SCALE If C... ACHS SC 07/04/17 21:00 08/03/17 20:59 07/06/17 16:51 8 UNITS Glucose (Glucose 40% Gel) 15-30 GRAMS 15 GRAMS... UD PRN PO 07/04/17 20:45 08/03/17 20:44 Glucose (Glucose Chew Tab) 4-8 Tablets 4 Tabl... UD PRN PO 07/04/17 20:45 08/03/17 20:44 Dextrose (Dextrose 50% 50ML Syringe) 25-50ML OF 50% DW IV FOR... UD PRN IV 07/04/17 20:45 08/03/17 20:44 Glucagon (Glucagon Inj) 1 mg UD PRN SQ 07/04/17 20:45 08/03/17 20:44 Levofloxacin 750 mg/Prmx 150 ml @ 100 mls/hr Q24H IV 07/04/17 22:00 07/11/17 20:44 07/05/17 20:46 100 MLS/HR Albuterol/ Ipratropium (Duoneb) 3 ml QIDR INH 07/05/17 08:00 08/04/17 07:59 07/06/17 15:31 3 ML Methylprednisolone Sodium Succinate 40 mg/Syringe 0.64 ml @ 1.5 mls/min Q6H IV 07/04/17 22:00 08/03/17 20:44 07/06/17 16:44 1.5 MLS/MIN Aspirin (Ecotrin Tab) 81 mg QAM PO 07/05/17 09:00 08/04/17 08:59 07/06/17 08:22 81 MG Amlodipine Besylate (Norvasc Tab) 10 mg DAILY PO 07/05/17 09:00 08/04/17 08:59 07/06/17 08:23 10 MG Atorvastatin Calcium (Lipitor Tab) 20 mg DAILY PO 07/05/17 09:00 08/04/17 08:59 07/06/17 08:23 20 MG Carvedilol (Coreg Tab) 12.5 mg BID PO 07/05/17 09:00 08/04/17 08:59 07/06/17 08:22 12.5 MG Citalopram Hydrobromide (celeXA TAB) 40 mg DAILY PO 07/05/17 09:00 08/04/17 08:59 07/06/17 08:21 40 MG Digoxin (Lanoxin Tab) 0.125 mg DAILY@1600 PO 07/05/17 16:00 08/04/17 15:59 07/06/17 16:44 0.125 MG Losartan Potassium (coZAAR TAB) 25 mg DAILY PO 07/05/17 09:00 08/04/17 08:59 07/06/17 08:22 25 MG Warfarin Sodium (Coumadin Tab) 5 mg SuSa@1600 PO 07/09/17 16:00 08/08/17 15:59 Warfarin Sodium (Coumadin Tab) 2.5 mg MoTuWeThFr@1600 PO 07/05/17 16:00 08/04/17 15:59 07/06/17 16:45 2.5 MG
[2017-07-06] MEDS: LEVOFLOXACIN / D5W 750 MG in PREMIXED IN D5W 150 ML IV SCH (21:50)
[2017-07-07] VITALS (12 sets, daily range): BP systolic 117–148; BP diastolic 54–72; PULSE 60–67; TEMP 36.4–37; O2SAT 91–99
[2017-07-07 06:46] LABS: INR 1.8 (0.9-1.1)
[2017-07-07] MEDS: ALBUT/IPRATROP 3MG/0.5MG NEB 3 ML VIAL INH SCH ×4 (07:02→19:32)
[2017-07-07 07:07] LABS: CALCIUM 8.3 mg/dl (8.5-10.1); CREATININE 0.83 mg/dl (0.60-1.40); POTASSIUM 3.9 mmol/L (3.5-5.1)
[2017-07-07] MEDS: LOSARTAN POTASSIUM 25 MG TAB PO SCH (07:37)
[2017-07-07] MEDS: METHYLPREDNISOLONE IV 40 MG in SYRINGE 0 ML IV SCH (07:37)
[2017-07-07] MEDS: FUROSEMIDE INJ 20 MG in SYRINGE 0 ML IV SCH (07:37)
[2017-07-07] MEDS: ASPIRIN 81 MG ECTAB PO SCH (07:38)
[2017-07-07] MEDS: AMLODIPINE BESYLATE 5 MG TAB PO SCH (07:38)
[2017-07-07] MEDS: CITALOPRAM 40 MG TAB PO SCH (07:38)
[2017-07-07] MEDS: ATORVASTATIN 20 MG TAB PO SCH (07:38)
[2017-07-07] MEDS: CARVEDILOL 12.5 MG TAB PO SCH ×2 (07:38→21:07)
[2017-07-07] MEDS: INSULIN ASPART 100 UNITS/ML 3 ML PEN SC SCH ×4 (07:40→21:00)
[2017-07-07] MEDS: INSULIN GLARGINE SOLOSTAR 100 UNITS/ML 3 ML PEN SC SCH ×2 (07:42→21:09)
--- NOTE | 2017-07-07 10:29 | Cardiology Follow-Up ---
Subjective General Date of Service: Jul 07, 2017. Chief Complaint: SOB; cough Pt evaluation today including: conversation w/ patient, physical exam, chart review, lab review, review of studies, conversation w/ market intelligence consultant, review of inpatient medication list History of Present Illness Patient feeling better. Still with dyspnea on exertion. Still requiring supplemental O2. Does not typically wear O2 at home. No chest pain. No orthopnea. Still with cough, but improving. No SOB at rest. No dizziness. Allergies Coded Allergies: No Known Allergies (Verified , 07/04/17) Social History Smoking Status: Current Every Day Smoker Hx Tobacco Use In Past Year?: Yes (1 PACK/DAY) Hx Alcohol Use - Type And Amou: No Hx Substance Use - Type And Am: No Problem List Medical Problems: (1) Pulmonary edema Status: Acute Review of Systems Respiratory: + cough, + dyspnea on exertion, No sputum, No wheezing, No dyspnea at rest Cardiac: No chest pain, No orthopnea, No PND, No edema, No palpitations Physical Exam Vital Signs Last Vital Signs Documentation Date Time Temp Pulse Resp B/P (MAP) Pulse Ox O2 Delivery O2 Flow Rate FiO2 07/07/17 08:00 Nasal Cannula 2.0 07/07/17 07:30 36.4 66 24 148/67 (94) 99 Physical Exam Constitutional: General Apperance: well-nourished Level of Distress: NAD, chronically ill Ambulation: ambulating normally Psychiatric: Mental Status: active & alert Orientation: to time, to place, to person Head: normocephalic Eyes: Pupils: PERRLA Neck: supple Lungs: Auscultation: deminished air movement, decreased breath sounds Cardiovascular: Heart Auscultation: II/ ROXANN, irregular rate rhythm Extremities: no edema Assessment and Plan Assessment and Plan 77-year-old male 1. Acute COPD exacerbation with hypoxia 2. 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 NSTEMI secondary to demand ischemia in the setting of severe hypoxia. Not indicative of ACS. No acute EKG changes. No chest pain. 4. Moderate to severe Mitral regurgitation, mild mitral stenosis, mild with preserved LV function on echo. 5. 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 7. Pacemaker, recent gen change - appropriate function per interorgation this AM. 8. Chronic tobacco abuse 9. Carotid vascular disease s/p CEA Plan: Symptoms improving. Not yet at baseline. Still requiring supplemental O2. try to wean today. May need 2 Step prior to discharge. Furosemide 20 mg IV added this AM. Likely will need low dose furosemide on discharge due to underlying valvular heart disease. Continue treatments for COPD exacerbation per hospitalist. Continue all other cardiac medications. Once respiratory status improves/at baseline, consider outpatient ischemic work up given elevated troponin. Case discussed with Dr. Carlson. Will follow. CARDIOLOGY ATTENDING ADDENDUM: The patient was seen and personally examined. Agree with Margaret Castaneda PA-C's findings and plans as documented above. Laboratory Results Last 24 Hours Test 07/06/17 10:52 07/06/17 16:07 07/06/17 20:35 07/07/17 06:17 Bedside Glucose 180 mg/dl 138 mg/dl 174 mg/dl Prothrombin Time 18.7 SECONDS Prothromb Time International Ratio 1.8 Sodium Level 136 mmol/L Potassium Level 3.9 mmol/L Chloride Level 100 mmol/L Carbon Dioxide Level 32 mmol/L Anion Gap 4.0 mmol/L Blood Urea Nitrogen 27 mg/dl Creatinine 0.83 mg/dl Est Creatinine Clear Calc Drug Dose 79.4 ml/min Estimated GFR () 99.8 Estimated GFR (Non- 86.1 BUN/Creatinine Ratio 32.8 Random Glucose 134 mg/dl Calcium Level 8.3 mg/dl Test 07/07/17 06:38 Bedside Glucose 121 mg/dl
--- NOTE | 2017-07-07 11:03 | Progress Note ---
Medicine Progress Note Date & Time of Visit: Jul 07, 2017 at 10:51. Subjective Pt was seen and examined Lying in bed with no distress Pt said that his breathing seems to get better Denies any chest pain, palpitation, dizziness Objective Last 8 Hrs Date Time Temp Pulse Resp B/P (MAP) Pulse Ox O2 Delivery O2 Flow Rate FiO2 07/07/17 08:00 Nasal Cannula 2.0 07/07/17 07:30 36.4 66 24 148/67 (94) 99 Nasal Cannula 2.0 07/07/17 07:02 62 16 96 Nasal Cannula 3.0 07/07/17 05:54 36.4 65 19 134/54 (80) 96 Nasal Cannula 3.0 07/07/17 04:09 Nasal Cannula 2.0 Physical Exam: General- No acute distress Head- atraumatic Eyes- PERRL, EOMI ENT- oropharynx clear Neck- supple, no JVD Lungs- Decrease breast sound Heart- regular rhythm Abdomen- normal bowel sounds, soft Extremities- no calf tenderness Neuro- alert, oriented x 3; PERRL, EOMI; no facial palsy Skin- warm & dry Laboratory Results: Last 24 Hours Test 07/06/17 10:52 07/06/17 16:07 07/06/17 20:35 07/07/17 06:17 Bedside Glucose 180 mg/dl 138 mg/dl 174 mg/dl Prothrombin Time 18.7 SECONDS Prothromb Time International Ratio 1.8 Sodium Level 136 mmol/L Potassium Level 3.9 mmol/L Chloride Level 100 mmol/L Carbon Dioxide Level 32 mmol/L Anion Gap 4.0 mmol/L Blood Urea Nitrogen 27 mg/dl Creatinine 0.83 mg/dl Est Creatinine Clear Calc Drug Dose 79.4 ml/min Estimated GFR () 99.8 Estimated GFR (Non- 86.1 BUN/Creatinine Ratio 32.8 Random Glucose 134 mg/dl Calcium Level 8.3 mg/dl Test 07/07/17 06:38 Bedside Glucose 121 mg/dl Assessment & Plan Hypoxia Possible related to COPD exacerbation vs Acute on chronic diastolic heart failure exacerbation. CXR showed interval development of pulmonary edema with probable small bilateral pleural effusions. Influenza antigen and Ab negative ProBNP 4477 (Elevated) Received Lasix 20mg IVx1 On solumedrol 40mg IV q6h and Levaquin 750mg Will taper solumedrol to 40mg daily and transition to oral prednisone tomorrow Additional lasix 20mg IV given Continue respiratory treatment and oxygen supplement Will get a 2 step before discharge Will reassess in am for diuretic therapy on discharge Clinically improved Elevated troponin Possible related to hypoxia Denies any chest pain Troponin peak to 1.5 EKG showed non specific ST changes Cardiology consulted Follow up on troponin No heparin since pt is on Coumadin and INR is therapeutic Continue aspirin, statin and coreg Will need cardiac workup once stable Continue monitor in tele ECHO showed * The left ventricular wall motion is normal. * There is mild concentric left ventricular hypertrophy. * Ejection Fraction = 55-60%. * The right ventricle is normal in size and function. * There is mild tricuspid regurgitation. * Mild pulmonary hypertension is present. * The calculated pulmonary artery systolic pressure is 46 mmHg, assuming a right atrial pressure of 3 mmHg. * There is severe mitral annular calcification. * There is moderate to severe mitral regurgitation. * Borderline to mild mitral valve stenosis is present with a mean gradient of 5 mmHg. * Mild valvular aortic stenosis is present. Chronic atrial fibrillation Rate controlled with Coreg, on digoxin. Continue anticoagulation with Coumadin INR 1.8 Diabetes mellitus type 2 Hba1c 5.7 Continue holding metformin and glipizide. Continue Insulin sliding scale and Lantus Bilateral carotid artery stenosis Stable CKD stage III Creatine stable History of bladder cancer No urinary issues at this time Stable DVT prophylaxis On warfarin, INR 1.8 CODE STATUS FULL CODE Disposition Continue monitor in telemetry Current Inpatient Medications: Current Inpatient Medications Medications (Trade) Dose Ordered Sig/Lynette Route Start Time Stop Time Status Last Admin Dose Admin Acetaminophen (Tylenol Tab) 650 mg Q4H PRN PO 07/04/17 20:45 08/03/17 20:44 Ondansetron HCl (Zofran Inj) 4 mg Q6H PRN IV 07/04/17 20:45 08/03/17 20:44 Polyethylene (Miralax Powder Packet) 17 gm DAILY PRN PO 07/04/17 20:45 08/03/17 20:44 Insulin Glargine (Lantus Solostar Pen) 6 units Q12 SC 07/04/17 21:00 08/03/17 20:59 07/07/17 07:42 6 UNITS Insulin Aspart (novoLOG ASPART) SLIDING SCALE If C... ACHS SC 07/04/17 21:00 08/03/17 20:59 3/15/18 07:40 5 UNITS Glucose (Glucose 40% Gel) 15-30 GRAMS 15 GRAMS... UD PRN PO 07/04/17 20:45 08/03/17 20:44 Glucose (Glucose Chew Tab) 4-8 Tablets 4 Tabl... UD PRN PO 07/04/17 20:45 08/03/17 20:44 Dextrose (Dextrose 50% 50ML Syringe) 25-50ML OF 50% DW IV FOR... UD PRN IV 07/04/17 20:45 08/03/17 20:44 Glucagon (Glucagon Inj) 1 mg UD PRN SQ 07/04/17 20:45 08/03/17 20:44 Levofloxacin 750 mg/Prmx 150 ml @ 100 mls/hr Q24H IV 07/04/17 22:00 07/11/17 20:44 07/06/17 21:50 100 MLS/HR Albuterol/ Ipratropium (Duoneb) 3 ml QIDR INH 07/05/17 08:00 08/04/17 07:59 07/07/17 07:02 3 ML Aspirin (Ecotrin Tab) 81 mg QAM PO 07/05/17 09:00 08/04/17 08:59 07/07/17 07:38 81 MG Amlodipine Besylate (Norvasc Tab) 10 mg DAILY PO 07/05/17 09:00 08/04/17 08:59 07/07/17 07:38 10 MG Atorvastatin Calcium (Lipitor Tab) 20 mg DAILY PO 07/05/17 09:00 08/04/17 08:59 07/07/17 07:38 20 MG Carvedilol (Coreg Tab) 12.5 mg BID PO 07/05/17 09:00 08/04/17 08:59 07/07/17 07:38 12.5 MG Citalopram Hydrobromide (celeXA TAB) 40 mg DAILY PO 07/05/17 09:00 08/04/17 08:59 07/07/17 07:38 40 MG Digoxin (Lanoxin Tab) 0.125 mg DAILY@1600 PO 07/05/17 16:00 08/04/17 15:59 07/06/17 16:44 0.125 MG Losartan Potassium (coZAAR TAB) 25 mg DAILY PO 07/05/17 09:00 08/04/17 08:59 07/07/17 07:37 25 MG Warfarin Sodium (Coumadin Tab) 5 mg SuSa@1600 PO 07/09/17 16:00 08/08/17 15:59 Warfarin Sodium (Coumadin Tab) 2.5 mg MoTuWeThFr@1600 PO 07/05/17 16:00 08/04/17 15:59 07/06/17 16:45 2.5 MG Methylprednisolone Sodium Succinate 40 mg/Syringe 0.64 ml @ 1.5 mls/min DAILY IV 07/07/17 09:00 08/03/17 20:44 07/07/17 07:37 1.5 MLS/MIN Furosemide 20 mg/ Syringe 2 ml @ 4 mls/min DAILY IV 07/07/17 09:00 08/06/17 08:59 07/07/17 07:37 4 MLS/MIN
[2017-07-07] MEDS: DIGOXIN 0.125 MG TAB PO SCH (16:06)
[2017-07-07] MEDS: WARFARIN SOD 3 MG TAB PO SCH (16:06)
[2017-07-07] MEDS: LEVOFLOXACIN / D5W 750 MG in PREMIXED IN D5W 150 ML IV SCH (21:47)
[2017-07-08] VITALS (12 sets, daily range): BP systolic 93–147; BP diastolic 45–68; PULSE 59–67; TEMP 36.4–36.6; O2SAT 92–98
[2017-07-08 06:51] LABS: INR 2.1 (0.9-1.1)
[2017-07-08] MEDS: ALBUT/IPRATROP 3MG/0.5MG NEB 3 ML VIAL INH SCH ×4 (07:07→18:57)
[2017-07-08 07:14] LABS: CALCIUM 8.2 mg/dl (8.5-10.1); CREATININE 0.82 mg/dl (0.60-1.40)
[2017-07-08] MEDS: INSULIN ASPART 100 UNITS/ML 3 ML PEN SC SCH ×3 (08:16→16:48)
[2017-07-08] MEDS: METHYLPREDNISOLONE IV 40 MG in SYRINGE 0 ML IV SCH (08:17)
[2017-07-08] MEDS: FUROSEMIDE INJ 20 MG in SYRINGE 0 ML IV SCH (08:17)
[2017-07-08] MEDS: CITALOPRAM 40 MG TAB PO SCH (08:18)
[2017-07-08] MEDS: ASPIRIN 81 MG ECTAB PO SCH (08:18)
[2017-07-08] MEDS: CARVEDILOL 12.5 MG TAB PO SCH (08:19)
[2017-07-08] MEDS: ATORVASTATIN 20 MG TAB PO SCH (08:19)
[2017-07-08] MEDS: AMLODIPINE BESYLATE 5 MG TAB PO SCH (08:19)
[2017-07-08] MEDS: LOSARTAN POTASSIUM 25 MG TAB PO SCH (08:20)
[2017-07-08] MEDS: INSULIN GLARGINE SOLOSTAR 100 UNITS/ML 3 ML PEN SC SCH (08:21)
--- NOTE | 2017-07-08 11:49 | Cardiology Follow-Up ---
Subjective General Date of Service: Jul 08, 2017. Chief Complaint: SOB; cough Pt evaluation today including: conversation w/ patient, physical exam, chart review, lab review, review of studies, review of inpatient medication list History of Present Illness Patient feeling better. Hoping to go home today. SOB improved. Passed 2 Step. On RA currently. Cough improved. No dizziness. No chest pain. He reports being back to baseline. Allergies Coded Allergies: No Known Allergies (Verified , 07/04/17) Social History Smoking Status: Current Every Day Smoker Hx Tobacco Use In Past Year?: Yes (1 PACK/DAY) Hx Alcohol Use - Type And Amou: No Hx Substance Use - Type And Am: No Problem List Medical Problems: (1) Pulmonary edema Status: Acute Review of Systems Respiratory: + cough, No wheezing, No shortness of breath, No dyspnea on exertion Cardiac: No chest pain, No orthopnea, No PND, No edema, No palpitations Physical Exam Vital Signs Last Vital Signs Documentation Date Time Temp Pulse Resp B/P (MAP) Pulse Ox O2 Delivery O2 Flow Rate FiO2 07/08/17 11:33 36.6 60 19 117/45 (69) 92 Room Air 07/08/17 08:00 2.0 Physical Exam Constitutional: General Apperance: well-nourished Level of Distress: NAD, chronically ill Ambulation: ambulating normally Psychiatric: Mental Status: active & alert Orientation: to time, to place, to person Head: normocephalic Eyes: Pupils: PERRLA Neck: supple Lungs: Auscultation: deminished air movement, decreased breath sounds Cardiovascular: Heart Auscultation: II/ ROXANN, irregular rate rhythm Extremities: no edema Assessment and Plan Assessment and Plan 77-year-old male 1. Acute COPD exacerbation with hypoxia 2. 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 NSTEMI secondary to demand ischemia in the setting of severe hypoxia. Not indicative of ACS. No acute EKG changes. No chest pain. 4. Moderate to severe Mitral regurgitation, mild mitral stenosis, mild with preserved LV function on echo. 5. History of non ischemic cardiomyopathy in 2001, wiht interval improvement in LV function. 7. Pacemaker, recent gen change - appropriate function per interrogation this AM. 8. Chronic tobacco abuse 9. Carotid vascular disease s/p CEA Plan: Symptoms improved. Recommend furosemide 20 mg daily on discharge. BMP next week Will arrange cardio 2 week hospital f/u appt for recheck. Continue all other cardiac medications. Once respiratory status improves/at baseline, consider outpatient ischemic work up given elevated troponin. Will discuss as outpatient. Stable cardiac signs/symptoms for discharge today. Case discussed with Dr. Carlson. CARDIOLOGY ATTENDING ADDENDUM: The patient was seen and personally examined. Agree with Margaret Castaneda PA-C's findings and plans as documented above. Laboratory Results Last 24 Hours Test 07/07/17 16:41 07/07/17 21:07 07/08/17 06:29 07/08/17 06:32 Bedside Glucose 123 mg/dl 106 mg/dl 88 mg/dl Prothrombin Time 21.9 SECONDS Prothromb Time International Ratio 2.1 Sodium Level 136 mmol/L Potassium Level 4.0 mmol/L Chloride Level 100 mmol/L Carbon Dioxide Level 31 mmol/L Anion Gap 5.0 mmol/L Blood Urea Nitrogen 28 mg/dl Creatinine 0.82 mg/dl Est Creatinine Clear Calc Drug Dose 80.4 ml/min Estimated GFR () 100.3 Estimated GFR (Non- 86.5 BUN/Creatinine Ratio 34.2 Random Glucose 87 mg/dl Calcium Level 8.2 mg/dl Test 07/08/17 11:15 Bedside Glucose 69 mg/dl
[2017-07-08] MEDS: DIGOXIN 0.125 MG TAB PO SCH (15:54)
[2017-07-08] MEDS: WARFARIN SOD 3 MG TAB PO SCH (15:55)
--- NOTE | 2017-07-08 16:07 | Progress Note ---
Medicine Progress Note Date & Time of Visit: Jul 08, 2017 at 14:15. Subjective Pt was seen and examined Sitting in chair with no distress Pt said that he feels much better He said that he moves around without any discomfort Denies any chest pain, palpitation, dizziness and SOB Objective Last 8 Hrs Date Time Temp Pulse Resp B/P (MAP) Pulse Ox O2 Delivery O2 Flow Rate FiO2 07/08/17 12:00 Room Air 07/08/17 11:33 36.6 60 19 117/45 (69) 92 Room Air 07/08/17 11:14 67 18 98 Room Air 07/08/17 09:05 96 07/08/17 08:23 124/57 (79) 07/08/17 08:00 Nasal Cannula 2.0 07/08/17 07:56 36.4 59 18 93/64 (74) 94 Nasal Cannula 2.0 07/08/17 07:07 60 18 95 Nasal Cannula 2.0 Physical Exam: General- No acute distress Head- atraumatic Eyes- PERRL, EOMI ENT- oropharynx clear Neck- supple, no JVD Lungs- Decrease breast sound Heart- regular rhythm Abdomen- normal bowel sounds, soft Extremities- no calf tenderness Neuro- alert, oriented x 3; PERRL, EOMI; no facial palsy Skin- warm & dry Laboratory Results: Last 24 Hours Test 07/07/17 16:41 07/07/17 21:07 07/08/17 06:29 07/08/17 06:32 Bedside Glucose 123 mg/dl 106 mg/dl 88 mg/dl Prothrombin Time 21.9 SECONDS Prothromb Time International Ratio 2.1 Sodium Level 136 mmol/L Potassium Level 4.0 mmol/L Chloride Level 100 mmol/L Carbon Dioxide Level 31 mmol/L Anion Gap 5.0 mmol/L Blood Urea Nitrogen 28 mg/dl Creatinine 0.82 mg/dl Est Creatinine Clear Calc Drug Dose 80.4 ml/min Estimated GFR () 100.3 Estimated GFR (Non- 86.5 BUN/Creatinine Ratio 34.2 Random Glucose 87 mg/dl Calcium Level 8.2 mg/dl Test 07/08/17 11:15 07/08/17 11:29 Bedside Glucose 69 mg/dl 95 mg/dl Assessment & Plan Hypoxia Possible related to COPD exacerbation vs Acute on chronic diastolic heart failure exacerbation. CXR showed interval development of pulmonary edema with probable small bilateral pleural effusions. Influenza antigen and Ab negative ProBNP 4477 (Elevated) Received Lasix 20mg IVx1 On solumedrol 40mg IV q6h and Levaquin 750mg Will taper solumedrol to 40mg daily and transition to oral prednisone tomorrow Additional lasix 20mg IV given Continue respiratory treatment and oxygen supplement Will get a 2 step before discharge Will reassess in am for diuretic therapy on discharge Clinically improved 07/08 Clinically stable 2 step done today and pt does not requires for oxygen case discuss with Cardio team and recommended lasix 20mg daily Check BMP in 1 week Follow up with cardiology in 2 weeks Elevated troponin Possible related to hypoxia Denies any chest pain Troponin peak to 1.5 EKG showed non specific ST changes Cardiology consulted Follow up on troponin No heparin since pt is on Coumadin and INR is therapeutic Continue aspirin, statin and coreg Will need cardiac workup as an outpatient Continue monitor in tele ECHO showed * The left ventricular wall motion is normal. * There is mild concentric left ventricular hypertrophy. * Ejection Fraction = 55-60%. * The right ventricle is normal in size and function. * There is mild tricuspid regurgitation. * Mild pulmonary hypertension is present. * The calculated pulmonary artery systolic pressure is 46 mmHg, assuming a right atrial pressure of 3 mmHg. * There is severe mitral annular calcification. * There is moderate to severe mitral regurgitation. * Borderline to mild mitral valve stenosis is present with a mean gradient of 5 mmHg. * Mild valvular aortic stenosis is present. Chronic atrial fibrillation Rate controlled with Coreg, on digoxin. Continue anticoagulation with Coumadin INR 2.1 Hx Pacemaker Interrogated and function well stable Diabetes mellitus type 2 Hba1c 5.7 Continue holding metformin and glipizide. Continue Insulin sliding scale and Lantus Bilateral carotid artery stenosis Stable CKD stage III Creatine stable History of bladder cancer No urinary issues at this time Stable DVT prophylaxis On warfarin, INR 2.1 CODE STATUS FULL CODE Disposition discharge home today Current Inpatient Medications: Current Inpatient Medications Medications (Trade) Dose Ordered Sig/Lynette Route Start Time Stop Time Status Last Admin Dose Admin Acetaminophen (Tylenol Tab) 650 mg Q4H PRN PO 07/04/17 20:45 08/03/17 20:44 Ondansetron HCl (Zofran Inj) 4 mg Q6H PRN IV 07/04/17 20:45 08/03/17 20:44 Polyethylene (Miralax Powder Packet) 17 gm DAILY PRN PO 07/04/17 20:45 08/03/17 20:44 Insulin Glargine (Lantus Solostar Pen) 6 units Q12 SC 07/04/17 21:00 08/03/17 20:59 07/08/17 08:21 6 UNITS Insulin Aspart (novoLOG ASPART) SLIDING SCALE If C... ACHS SC 07/04/17 21:00 08/03/17 20:59 07/08/17 08:16 7 UNITS Glucose (Glucose 40% Gel) 15-30 GRAMS 15 GRAMS... UD PRN PO 07/04/17 20:45 08/03/17 20:44 Glucose (Glucose Chew Tab) 4-8 Tablets 4 Tabl... UD PRN PO 07/04/17 20:45 08/03/17 20:44 Dextrose (Dextrose 50% 50ML Syringe) 25-50ML OF 50% DW IV FOR... UD PRN IV 07/04/17 20:45 08/03/17 20:44 Glucagon (Glucagon Inj) 1 mg UD PRN SQ 07/04/17 20:45 08/03/17 20:44 Levofloxacin 750 mg/Prmx 150 ml @ 100 mls/hr Q24H IV 07/04/17 22:00 07/11/17 20:44 07/07/17 21:47 100 MLS/HR Albuterol/ Ipratropium (Duoneb) 3 ml QIDR INH 07/05/17 08:00 08/04/17 07:59 07/08/17 11:14 3 ML Aspirin (Ecotrin Tab) 81 mg QAM PO 07/05/17 09:00 08/04/17 08:59 07/08/17 08:18 81 MG Amlodipine Besylate (Norvasc Tab) 10 mg DAILY PO 07/05/17 09:00 08/04/17 08:59 07/08/17 08:19 10 MG Atorvastatin Calcium (Lipitor Tab) 20 mg DAILY PO 07/05/17 09:00 08/04/17 08:59 07/08/17 08:19 20 MG Carvedilol (Coreg Tab) 12.5 mg BID PO 07/05/17 09:00 08/04/17 08:59 07/08/17 08:19 12.5 MG Citalopram Hydrobromide (celeXA TAB) 40 mg DAILY PO 07/05/17 09:00 08/04/17 08:59 07/08/17 08:18 40 MG Digoxin (Lanoxin Tab) 0.125 mg DAILY@1600 PO 07/05/17 16:00 08/04/17 15:59 07/07/17 16:06 0.125 MG Losartan Potassium (coZAAR TAB) 25 mg DAILY PO 07/05/17 09:00 08/04/17 08:59 07/08/17 08:20 25 MG Warfarin Sodium (Coumadin Tab) 5 mg SuSa@1600 PO 07/09/17 16:00 08/08/17 15:59 Warfarin Sodium (Coumadin Tab) 2.5 mg MoTuWeThFr@1600 PO 07/05/17 16:00 08/04/17 15:59 Future Hold 07/06/17 16:45 2.5 MG Methylprednisolone Sodium Succinate 40 mg/Syringe 0.64 ml @ 1.5 mls/min DAILY IV 07/07/17 09:00 08/03/17 20:44 07/08/17 08:17 1.5 MLS/MIN Furosemide 20 mg/ Syringe 2 ml @ 4 mls/min DAILY IV 07/07/17 09:00 08/06/17 08:59 07/08/17 08:17 4 MLS/MIN Warfarin Sodium (Coumadin Tab) 3 mg DAILY@16 PO 07/07/17 16:00 08/06/17 15:59 07/07/17 16:06 3 MG
[2017-07-08] MEDS ORDERED: PRD20 PO (18:08)
[2017-07-08] MEDS ORDERED: FURO-85 PO (18:08)
[2017-07-08] MEDS ORDERED: LEVOFLOXACIN 750 MG TAB PO ONE (18:15)
--- NOTE | 2017-07-08 18:19 | Discharge Instructions ---
Discharge Instructions Date of Service Jul 08, 2017. Admission Reason for Admission: Hypoxia Discharge Discharge Diagnosis / Problem: hypoxia respiratory failure, COPD exacerbation, Elevated troponin Discharge Goals Goal(s): Decrease discomfort, Improve function, Improve disease control Activity Recommendations Activity Limitations: resume your previous activity (as tolerated) . Instructions / Follow-Up Instructions / Follow-Up Follow up with your primary care provider ( The office will call you for the appointment on Tuesday) Follow up with cardiology in 2 weeks (Please call to schedule for the follow up appointment) Please follow up with the Coumadin clinic Check BMP within 1 week to monitor electrolytes and renal function Continue prednisone taper Current Hospital Diet Patient's current hospital diet: AHA Diet (Heart Healthy), Diabetes Type 2 Diet Discharge Diet Recommended Diet: AHA Diet (Heart Healthy), Diabetes Type 2 Diet Pending Studies Studies pending at discharge: no Laboratory Results Hemoglobin A1c Test 07/05/17 04:02 Range/Units Estimated Average Glucose 117 mg/dl Hemoglobin A1c 5.7 H 4.5-5.6 % Medical Emergencies . Who to Call and When: Medical Emergencies: If at any time you feel your situation is an emergency, please call 911 immediately. . Non-Emergent Contact Non-Emergency issues call your: Primary Care Provider, [employer] . . "Provider Documentation" section prepared by Jero Reeves. .
[2017-07-09] MEDS ORDERED: WARFARIN SOD 5 MG TAB PO SCH (16:00)
--- NOTE | 2017-07-10 08:21 | Discharge Summary ---
Discharge Summary Date of Service Jul 10, 2017. Discharge Summary Admission Date: Jul 04, 2017 at 20:00 Discharge Date: Jul 08, 2017 Discharge Disposition: Home Principal Diagnosis: Hypoxia respiratory failure Secondary Diagnoses/Problems: COPD exacerbation Elevated troponin Chronic atrial fibrillation Diabetes mellitus type 2 Hx Pacemaker CKD stage 3 Bilateral carotid artery stenosis DM type 2 Procedures: CHEST 2 VIEWS ROUTINE HISTORY: 77 years-old Male cough; Eval pleural effusions; CHF acute cough COMPARISON: Chest radiograph 07/04/2017 TECHNIQUE: PA and lateral views of the chest FINDINGS: Cardiac silhouette is mildly enlarged, unchanged. Left subclavian pacer is again noted with leads unchanged. There is no pneumothorax. Small bilateral pleural effusions with mild pulmonary vascular congestion. Lungs are mildly hyperinflated. There is improved aeration of the bilateral lungs from comparison with persistent hazy bibasilar opacities. Severe degenerative changes about the right shoulder. Degenerative changes also seen throughout the spine. IMPRESSION: 1. Cardiomegaly and pulmonary vascular congestion with decreased pulmonary edema from comparison. 2. Small bilateral pleural effusions with hazy bibasilar opacities suggesting atelectasis or pneumonitis. The above report was generated using voice recognition software. It may contain grammatical, syntax or spelling errors. Electronically signed by: Matt Del Rosario M.D. 07/06/2017 1:26 PM Dictated Date/Time: 07/06/2017 1:18 PM ECHO Interpretation Summary * Name: YARITZA CORREA Study Date: 07/05/2017 05:33 AM BP: 118/65 mmHg * Patient Location: [facility] HR: 88 * : 1940 (M/d/yyyy) Gender: Male Height: 70 in * Age: 77 yrs Ethnicity: CA Weight: 184 lb * Ordering Physician: Amairani Sanchez * Referring Physician: Self, Referred * Performed By: Tamara Bedolla RDCS * * Reason For Study: Elevated Troponin, Shortness of Breath * BSA: 2.0 m2 * -- Conclusions -- * The left ventricular wall motion is normal. * There is mild concentric left ventricular hypertrophy. * Ejection Fraction = 55-60%. * The right ventricle is normal in size and function. * There is mild tricuspid regurgitation. * Mild pulmonary hypertension is present. * The calculated pulmonary artery systolic pressure is 46 mmHg, assuming a right atrial pressure of 3 mmHg. * There is severe mitral annular calcification. * There is moderate to severe mitral regurgitation. * Borderline to mild mitral valve stenosis is present with a mean gradient of 5 mmHg. * Mild valvular aortic stenosis is present. Procedure Details * A complete two-dimensional transthoracic echocardiogram was performed (2D, M- mode, Doppler and color flow Doppler). Left Ventricle * The left ventricle is normal in size. * There is mild concentric left ventricular hypertrophy. * Left ventricular systolic function is normal. * Ejection Fraction = 55-60%. * The left ventricular wall motion is normal. Right Ventricle * There is a pacemaker lead in the right ventricle. * The right ventricle is normal in size and function. Atria * The left atrium is severely dilated. * Right atrial size is normal. * Pacemaker lead is noted in the right atrium. * There is no evidence of atrial septal defect, but resolution does not allow assessment for a patent foramen ovale. Mitral Valve * There is severe mitral annular calcification. * Borderline to mild mitral valve stenosis is present with a mean gradient of 5 mmHg. * There is moderate to severe mitral regurgitation. Tricuspid Valve * The tricuspid valve is normal. * There is no tricuspid stenosis. * There is mild tricuspid regurgitation. * Mild pulmonary hypertension is present. The calculated pulmonary artery systolic pressure is 46 mmHg, assuming a right atrial pressure of 3 mmHg. Aortic Valve * The aortic valve is trileaflet. * Mild valvular aortic stenosis. * There is no significant aortic regurgitation. Pulmonic Valve * The pulmonary valve is not well seen, but the Doppler examination is normal without significant regurgitation or stenosis. Great Vessels * The aortic root and proximal ascending aorta are normal sized. Pericardium/Pleural * There is no pericardial effusion. Great Vessels * Normal inferior vena cava diameter and respiratory variation suggests normal central venous pressure. Medication Reconciliation New Medications: Furosemide (Lasix) 20 Mg Tab 20 MG PO DAILY for 30 Days, #30 TAB Prednisone (Prednisone) 20 Mg Tab 1 TAB PO DAILY for 5 Days Continued Medications: Amlodipine (Norvasc) 10 Mg Tab 10 MG PO DAILY, TAB Aspirin (Aspirin Ec) 81 Mg Tab 81 MG PO DAILY Atorvastatin (Lipitor) 20 Mg Tab 20 MG PO DAILY, TAB Carvedilol (Coreg) 12.5 Mg Tab 12.5 MG PO BID, TAB Citalopram (Citalopram Hydrobromide) 40 Mg Tab 40 MG PO DAILY Digoxin (Digoxin) 0.125 Mg Tab 0.125 MG PO DAILY Glipizide (Glucotrol) 10 Mg Tab 20 MG PO BID, TAB Losartan Potassium (Losartan Potassium) 50 Mg Tab 25 MG PO DAILY Metformin Hcl (Glucophage) 500 Mg Tab 500 MG PO BID, TAB Warfarin Sod (Coumadin) 5 Mg Tab 5 MG PO SatSun TUESDAY, TUESDAY, TUESDAY, AND TUESDAY Warfarin Sod (Jantoven) 5 Mg Tab 2.5 MG PO MTWRF, TAB TUESDAY, TUESDAY, AND TUESDAY Discontinued Medications: Hydrochlorothiazide (Hctz) 25 Mg Tab 25 MG PO 3XWK, TAB Tuesday AND TUESDAY Admission Information HPI (per Admitting provider): The patient is a 77-year-old male smoker who presents to the emergency room with shortness of breath that began 24 hours before arrival. He reports generalized weakness, runny nose, a cough with clear sputum which is new for him. He denies any fevers, chills, nausea, vomiting, diarrhea, pain with urination or other UTI symptoms. He denies chest pain or palpitations. He has a known history of A. fib on Coumadin and is therapeutic. He received a nebulizer treatment prior to arrival and in the ER with some improvement. He denies any recent sick contacts except for 2 people that he briefly interacted with in his apartment building. He denies any travel. He is not on oxygen typically. He reports feeling last night that he could not get enough air. The patient lives alone. Physical Exam (per Admitting): General Appearance: WD/WN, + mild distress (Mild respiratory distress.) Head: normocephalic, atraumatic Eyes: normal inspection, PERRL, sclerae normal ENT: normal ENT inspection, pharynx normal, + pertinent finding (Mucous membranes moist) Neck: supple, no adenopathy, no JVD, trachea midline Respiratory/Chest: + rhonchi, + wheezing, + pertinent finding (Mild respiratory distress, pacemaker in place left anterior chest) Cardiovascular: regular rate, rhythm, no edema, no gallop, no JVD, no murmur , normal peripheral pulses Abdomen/GI: normal bowel sounds, non tender, soft, no organomegaly Extremities/Musculoskelatal: normal inspection, no calf tenderness, no pedal edema, normal range of motion Neurologic/Psych: 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 CXR showed interval development of pulmonary edema with probable small bilateral pleural effusions. Influenza antigen and Ab negative ProBNP 4477 (Elevated) Received Lasix 20mg IVx1 On solumedrol 40mg IV q6h and Levaquin 750mg Will taper solumedrol to 40mg daily and transition to oral prednisone tomorrow Additional lasix 20mg IV given Continue respiratory treatment and oxygen supplement Will get a 2 step before discharge Will reassess in am for diuretic therapy on discharge Clinically improved 07/08 Clinically stable 2 step done today and pt does not requires for oxygen case discuss with Cardio team and recommended lasix 20mg daily Check BMP in 1 week Follow up with cardiology in 2 weeks Elevated troponin Possible related to hypoxia Denies any chest pain Troponin peak to 1.5 EKG showed non specific ST changes Cardiology consulted Follow up on troponin No heparin since pt is on Coumadin and INR is therapeutic Continue aspirin, statin and coreg Will need cardiac workup as an outpatient Continue monitor in tele ECHO showed * The left ventricular wall motion is normal. * There is mild concentric left ventricular hypertrophy. * Ejection Fraction = 55-60%. * The right ventricle is normal in size and function. * There is mild tricuspid regurgitation. * Mild pulmonary hypertension is present. * The calculated pulmonary artery systolic pressure is 46 mmHg, assuming a right atrial pressure of 3 mmHg. * There is severe mitral annular calcification. * There is moderate to severe mitral regurgitation. * Borderline to mild mitral valve stenosis is present with a mean gradient of 5 mmHg. * Mild valvular aortic stenosis is present. Chronic atrial fibrillation Rate controlled with Coreg, on digoxin. Continue anticoagulation with Coumadin INR 2.1 Hx Pacemaker Interrogated and function well stable Diabetes mellitus type 2 Hba1c 5.7 Continue holding metformin and glipizide. Continue Insulin sliding scale and Lantus Bilateral carotid artery stenosis Stable CKD stage III Creatine stable History of bladder cancer No urinary issues at this time Stable DVT prophylaxis On warfarin, INR 2.1 CODE STATUS FULL CODE Disposition discharge home today Total time spent on discharge = 35 minutes This includes examination of the patient, discharge planning, medication reconciliation, and communication with other providers. Discharge Instructions Discharge Instructions Date of Service Jul 08, 2017. Admission Reason for Admission: Hypoxia Discharge Discharge Diagnosis / Problem: hypoxia respiratory failure, COPD exacerbation, Elevated troponin Discharge Goals Goal(s): Decrease discomfort, Improve function, Improve disease control Activity Recommendations Activity Limitations: resume your previous activity (as tolerated) . Instructions / Follow-Up Instructions / Follow-Up Follow up with your primary care provider ( The office will call you for the appointment on Tuesday) Follow up with cardiology in 2 weeks (Please call to schedule for the follow up appointment) Please follow up with the Coumadin clinic Check BMP within 1 week to monitor electrolytes and renal function Continue prednisone taper Current Hospital Diet Patient's current hospital diet: AHA Diet (Heart Healthy), Diabetes Type 2 Diet Discharge Diet Recommended Diet: AHA Diet (Heart Healthy), Diabetes Type 2 Diet Pending Studies Studies pending at discharge: no Laboratory Results Hemoglobin A1c Test 07/05/17 04:02 Range/Units Estimated Average Glucose 117 mg/dl Hemoglobin A1c 5.7 H 4.5-5.6 % Medical Emergencies . Who to Call and When: Medical Emergencies: If at any time you feel your situation is an emergency, please call 911 immediately. . Non-Emergent Contact Non-Emergency issues call your: Primary Care Provider, [employer] . . "Provider Documentation" section prepared by Jero Reeves. . Additional Copies To Shwetha Avina
== END 2017-07-08 19:19 | disposition home or self-care (01) | DRG 190 ==
LOC: EDBD 15:46 → C.EDB 15:47 → C.2E 20:00 → ENRESERV 20:23
PROVIDERS: ADMIT Hospitalist; ATTEND Internal Medicine
DX: J44.1 Chronic obstructive pulmonary disease with (acute) exacerbation (principal); I50.33 Acute on chronic diastolic (congestive) heart failure; I21.4 Non-ST elevation (NSTEMI) myocardial infarction; I13.0 Hypertensive heart and chronic kidney disease with heart failure and stage 1 through stage 4 chronic kidney disease, or unspecified chronic kidney disease; I48.91 Unspecified atrial fibrillation; I11.0 Hypertensive heart disease with heart failure; E11.9 Type 2 diabetes mellitus without complications; F17.200 Nicotine dependence, unspecified, uncomplicated; I65.23 Occlusion and stenosis of bilateral carotid arteries; I34.0 Nonrheumatic mitral (valve) insufficiency; N18.3 Chronic kidney disease, stage 3 (moderate); Z85.51 Personal history of malignant neoplasm of bladder; Z79.82 Long term (current) use of aspirin; Z79.01 Long term (current) use of anticoagulants; Z95.0 Presence of cardiac pacemaker; Z83.3 Family history of diabetes mellitus; Z82.49 Family history of ischemic heart disease and other diseases of the circulatory system